=== PATIENT | male | born 1960 | race Caucasian/White ===

== ENCOUNTER 2017-08-16 09:08 | Inpatient (IN) | payer OTHER ==
[2017-08-16] MEDS ORDERED: ONDANSETRON 4 MG/2 ML VIAL IVP STA (09:14)
[2017-08-16] MEDS ORDERED: SODIUM CHLORIDE 0.9% 1,000 ML IV STA ×2 (09:14→11:39)
[2017-08-16] MEDS ORDERED: RX INFO: IV CONTRAST WAS GIVEN 1 EACH MISC MISCELLANE PRN (09:14)
[2017-08-16] MEDS ORDERED: HYDROmorphone 1 MG/ML 1 ML SYRINGE IVP STA ×2 (09:14→10:49)
--- NOTE | 2017-08-16 09:25 | ED ---
General Adult HPI <Andrzej Tian - Last Filed: 08/16/17 11:24> - General Source: patient, EMS, RN notes reviewed Mode of arrival: EMS Limitations: no limitations <Mallorie Miller - Last Filed: 08/16/17 11:30> - General Chief complaint: Abdominal Pain Stated complaint: Abd Pain Time Seen by Provider: 08/16/17 09:10 - History of Present Illness Initial comments: 56-year-old male presents to the emergency department with a chief complaint of abdominal pain. Patient states it a little bit of pain yesterday and then this morning about 4 hours ago he developed this terrible pain. Patient states he had some nausea vomiting with that when he tried to drink water was concerned. She denies any fever chills with this. She does admit that he has blown a hole in his bowels before and he states it feels somewhat like that. Patient denies any diarrhea. Patient's any recent fever or chills. Patient was concerned due to his pains without that he should be evaluated. Patient states that he chronically suffers some suicidal thoughts that he is chronically having these thoughts like he normally does on a daily basis. He has no plan. He states that this is very typical of him and he is not here to be evaluated for this. He has been taking this medicine is seeing psychiatrist. Patient denies any recent fever, chills, shortness of breath, chest pain, back pain, numbness or tingling, dysuria or hematuria, constipation or diarrhea, headaches or visual changes, or any other current symptoms. (Mallorie Miller) - Related Data Home Medications Medication Instructions Recorded Confirmed Albuterol Inhaler [Ventolin Hfa 1 - 2 puff INHALATION RT-Q6H PRN 07/29/17 Inhaler] Gabapentin 800 mg PO QID 07/29/17 08/16/17 HYDROcodone/APAP 10-325MG [Swink 1 tab PO QID PRN 07/29/17 08/16/17 10-325] Ibuprofen [Motrin] 600 mg PO TID PRN 07/29/17 08/16/17 ALPRAZolam [Xanax] 1 mg PO 5XD 08/16/17 08/16/17 Lisinopril [Zestril] 10 mg PO DAILY 08/16/17 08/16/17 Ranitidine HCl [Zantac] 150 mg PO BID 08/16/17 08/16/17 Tamsulosin HCl [Flomax] 0.4 mg PO DAILY 08/16/17 08/16/17 Previous Rx's Medication Instructions Recorded Escitalopram [Lexapro] 10 mg PO DAILY #30 tab 08/05/17 QUEtiapine FUMARATE [SEROquel] 300 mg PO HS #30 tab 08/05/17 hydrOXYzine HCL [Atarax] 75 mg PO HS PRN #30 tab 08/05/17 Allergies Allergy/AdvReac Type Severity Reaction Status Date / Time Sulfa (Sulfonamide Allergy Rash/Hives Verified 07/27/17 19:24 Antibiotics) Review of Systems ROS Other: All systems not noted in ROS Statement are negative. <Andrzej Tian - Last Filed: 08/16/17 11:24> ROS Other: All systems not noted in ROS Statement are negative. <Mallorie Miller - Last Filed: 08/16/17 11:30> ROS Statement: Those systems with pertinent positive or pertinent negative responses have been documented in the HPI. Past Medical History Past Medical History: Hypertension History of Any Multi-Drug Resistant Organisms: None Reported Additional Past Surgical History / Comment(s): stomach surgery (unable to tell what kind) Past Psychological History: Anxiety, Bipolar, Depression Smoking Status: Current every day smoker Past Alcohol Use History: None Reported Past Drug Use History: None Reported <Mallorie Miller - Last Filed: 08/16/17 11:30> General Exam <Andrzej Tian - Last Filed: 08/16/17 11:24> Limitations: no limitations <Mallorie Miller - Last Filed: 08/16/17 11:30> - General Exam Comments Initial Comments: General: The patient is awake and alert, in no distress, and does not appear acutely ill. Eye: Pupils are equal, round and reactive to light, extra-ocular movements are intact; there is normal conjunctiva bilaterally. No signs of icterus. Ears, nose, mouth and throat: There are moist mucous membranes and no oral lesions. Neck: The neck is supple, there is no tenderness. Cardiovascular: There is a regular rate and rhythm. No murmur, rub or gallop is appreciated. Respiratory: Lungs are clear to auscultation, respirations are non-labored, breath sounds are equal. No wheezes, stridor, rales, or rhonchi. Gastrointestinal: Soft, non-distended, left-sided tenderness of the abdomen without masses or organomegaly noted. There is no rebound or guarding present. No CVA tenderness. Bowel sounds are unremarkable. Back: There is no tenderness to palpation in the midline. There is no obvious deformity. No rashes noted. Musculoskeletal: Normal ROM, no tenderness, There is no pedal edema. There is no calf tenderness or swelling. Sensation intact. Pulses equal bilaterally 2+. Neurological: CN II-XII intact, There are no obvious motor or sensory deficits. Coordination appears grossly intact. Speech is normal. Skin: Skin is warm and dry and no rashes or lesions are noted. Psychiatric: Cooperative, appropriate mood & affect, normal judgment. (Mallorie Millre) Course <Andrzej Tian - Last Filed: 08/16/17 11:24> <Mallorie Miller - Last Filed: 08/16/17 11:30> Vital Signs 08/16/17 08/16/17 09:12 11:02 Temperature 97.7 F Pulse Rate 71 76 Respiratory 22 18 Rate Blood Pressure 127/83 156/92 O2 Sat by Pulse 97 96 Oximetry - Reevaluation(s) Reevaluation #1: 08/16/17 11:24 I proceeded [id number] evaluation the patient did discuss findings with her. Patient does have some epigastric tenderness palpation of the abdomen. The CAT scan does show evidence of free air consistent with a probable perforated viscus suspected gastric level. Patient does have a history of prior perforated ulcer and GI bleed. He does have ALLERGIES to sulfa. His last meal was yesterday. He does smoke he denies drinking alcohol I did discuss case with Dr. Franks who will come in to see the patient. (Andrzej Tian) Medical Decision Making - Lab Data Result diagrams: 08/16/17 09:35 08/16/17 09:35 <Andrzej Tian - Last Filed: 08/16/17 11:24> - Lab Data Result diagrams: 08/16/17 09:35 08/16/17 09:35 - Radiology Data Radiology results: report reviewed, image reviewed <Mallorie Miller - Last Filed: 08/16/17 11:30> - Medical Decision Making 56-year-old male presents emergency Department chief complaint of abdominal pain. At this time patient's computed tomography scan was reviewed Dr. Tian discussed case to Dr. franks we will be admitting the patient for the OR. Patient is in agreement with plan. (Mallorie Miller) - Lab Data Lab Results 08/16/17 08/16/17 08/16/17 Range/Units 09:35 09:35 09:35 WBC 9.7 (3.8-10.6) k/uL RBC 4.49 (4.30-5.90) m/uL Hgb 13.8 (13.0-17.5) gm/dL Hct 40.5 (39.0-53.0) % MCV 90.2 (80.0-100.0) fL MCH 30.7 (25.0-35.0) pg MCHC 34.0 (31.0-37.0) g/dL RDW 15.2 (11.5-15.5) % Plt Count 145 L (150-450) k/uL Neutrophils % 84 % Lymphocytes % 5 % Monocytes % 9 % Eosinophils % 1 % Basophils % 0 % Neutrophils # 8.2 H (1.3-7.7) k/uL Lymphocytes # 0.4 L (1.0-4.8) k/uL Monocytes # 0.9 (0-1.0) k/uL Eosinophils # 0.1 (0-0.7) k/uL Basophils # 0.0 (0-0.2) k/uL PT (9.0-12.0) sec INR (<1.2) APTT (22.0-30.0) sec Sodium 142 (137-145) mmol/L Potassium 3.6 (3.5-5.1) mmol/L Chloride 111 H (98-107) mmol/L Carbon Dioxide 16 L (22-30) mmol/L Anion Gap 15 mmol/L BUN 19 (9-20) mg/dL Creatinine 1.01 (0.66-1.25) mg/dL Est GFR (MDRD) Af Amer >60 (>60 ml/min/1.73 sqM) Est GFR (MDRD) Non-Af >60 (>60 ml/min/1.73 sqM) Glucose 104 H (74-99) mg/dL Plasma Lactic Acid Marcell 1.4 (0.7-2.0) mmol/L Calcium 9.3 (8.4-10.2) mg/dL Total Bilirubin 1.3 (0.2-1.3) mg/dL AST 52 (17-59) U/L ALT 73 H (21-72) U/L Alkaline Phosphatase 78 (38-126) U/L Total Protein 7.6 (6.3-8.2) g/dL Albumin 4.3 (3.5-5.0) g/dL Amylase 65 (30-110) U/L Lipase 154 (23-300) U/L 08/16/17 Range/Units 09:35 WBC (3.8-10.6) k/uL RBC (4.30-5.90) m/uL Hgb (13.0-17.5) gm/dL Hct (39.0-53.0) % MCV (80.0-100.0) fL MCH (25.0-35.0) pg MCHC (31.0-37.0) g/dL RDW (11.5-15.5) % Plt Count (150-450) k/uL Neutrophils % % Lymphocytes % % Monocytes % % Eosinophils % % Basophils % % Neutrophils # (1.3-7.7) k/uL Lymphocytes # (1.0-4.8) k/uL Monocytes # (0-1.0) k/uL Eosinophils # (0-0.7) k/uL Basophils # (0-0.2) k/uL PT 11.8 (9.0-12.0) sec INR 1.2 H (<1.2) APTT 24.1 (22.0-30.0) sec Sodium (137-145) mmol/L Potassium (3.5-5.1) mmol/L Chloride (98-107) mmol/L Carbon Dioxide (22-30) mmol/L Anion Gap mmol/L BUN (9-20) mg/dL Creatinine (0.66-1.25) mg/dL Est GFR (MDRD) Af Amer (>60 ml/min/1.73 sqM) Est GFR (MDRD) Non-Af (>60 ml/min/1.73 sqM) Glucose (74-99) mg/dL Plasma Lactic Acid Marcell (0.7-2.0) mmol/L Calcium (8.4-10.2) mg/dL Total Bilirubin (0.2-1.3) mg/dL AST (17-59) U/L ALT (21-72) U/L Alkaline Phosphatase (38-126) U/L Total Protein (6.3-8.2) g/dL Albumin (3.5-5.0) g/dL Amylase (30-110) U/L Lipase (23-300) U/L Disposition <Andrzej Tian - Last Filed: 08/16/17 11:24> Decision Date: 08/16/17 Decision Time: 11:30 <Mallorie Miller - Last Filed: 08/16/17 11:30> Clinical Impression: Pneumoperitoneum of unknown etiology Disposition: ADMITTED IP TO THIS [facility] Condition: Stable Referrals: Nonstaff,Physician [Primary Care Provider] - 1-2 days
[2017-08-16 10:09] LABS: Basophils % (A) 0 %; CH 31.5; CHCM 35.1; Eosinophils # (A) 0.1 k/uL (0-0.7); Eosinophils % (A) 1 %; HCT 40.5 % (39.0-53.0); HDW 2.58; HGB 13.8 gm/dL (13.0-17.5); Luc # (Auto) 0.09; Luc % (Auto) 1; Lymphocytes # (A) 0.4 k/uL (1.0-4.8); Lymphocytes % (A) 5 %; MCH 30.7 pg (25.0-35.0); MCV 90.2 fL (80.0-100.0); Mean Platelet Volume 9.4; Monocytes # (A) 0.9 k/uL (0-1.0); Monocytes % (A) 9 %; Neutrophils # (A) 8.2 k/uL (1.3-7.7); Neutrophils % (A) 84 %; RBC 4.49 m/uL (4.30-5.90); RDW 15.2 % (11.5-15.5); WBC 9.7 k/uL (3.8-10.6); WBC (Perox) 9.43
[2017-08-16 10:25] LABS: ALT 73 U/L (21-72); AST 52 U/L (17-59); Alkaline Phosphatase 78 U/L (38-126); Amylase 65 U/L (30-110); Anion Gap 15 mmol/L; Blood Urea Nitrogen 19 mg/dL (9-20); Calcium 9.3 mg/dL (8.4-10.2); Carbon Dioxide 16 mmol/L (22-30); Chloride 111 mmol/L (98-107); Glucose 104 mg/dL (74-99); INR 1.2 (<1.2); Non-African American GFR(MDRD) >60 (>60 ml/min/1.73 sqM); Partial Thromboplastin Time 24.1 sec (22.0-30.0); Potassium 3.6 mmol/L (3.5-5.1); Prothrombin Time 11.8 sec (9.0-12.0); Sodium 142 mmol/L (137-145); Total Bilirubin 1.3 mg/dL (0.2-1.3); Total Protein 7.6 g/dL (6.3-8.2)
--- NOTE | 2017-08-16 10:54 | CT ---
EXAMINATION TYPE: CT abdomen pelvis w con DATE OF EXAM: 08/16/2017 COMPARISON: NONE HISTORY: Patient complains of severe LLQ pain. CT DLP: 983.4 mGycm, Automated Exposure Control for Dose Reduction was Utilized. CONTRAST: CT scan of the abdomen and pelvis is performed without oral and with IV Contrast, patient injected wi th 100 mL of Omnipaque 300. FINDINGS: LUNG BASES: Dependent atelectasis is present in both lung bases. There is prominent but subcentimeter pericardial lymph node anteriorly on axial image 9. There is linear scarring and/or atelectasis ante riorly in both lung bases just above diaphragm. LIVER/GB: Gallbladder has distended margins without surrounding inflammatory change or intraluminal C T dense gallstones. PANCREAS: No significant abnormality is seen. SPLEEN: No significant abnormality is seen. ADRENALS: No significant abnormality is seen. KIDNEYS: No significant abnormality is seen. BOWEL: No suspicious small or large bowel dilatation is seen. There is some redundancy of the sigmo id colon. There is mild wall thickening in the mid transverse colon just left of midline seen best on coronal image 24 without surrounding inflammatory change, colitis at this level is not entirely excl uded. There is some prominence of fluid with poor definition along the greater curvature of the stoma ch seen best near coronal image 28. PROSTATE/SEMINAL VESICLES: Central zone calcification is seen in normal size prostate gland. LYMPH NODES: No greater than 1cm abdominal or pelvic lymph nodes are appreciated. OSSEOUS STRUCTURES: There is moderate joint space loss with mild to moderate spurring in both hip patsy nts. There is dextroconvex scoliosis centered in the mid lumbar spine. There is multilevel moderate t o severe disc space narrowing and spurring from L2-L3 through L5-S1 levels. OTHER: Pneumoperitoneum is present prominent in the upper abdomen anterior to the liver. There are sc attered foci of free air in the epigastric region. There is moderate size umbilical hernia containing fat and small mesenteric vessel incidentally noted . IMPRESSION: Pneumoperitoneum centered in the upper abdomen is present. Etiology uncertain but there i s suspicious focal fluid along the greater curvature of stomach raising concern for perforated ulcer. Critical results were communicated to ordering emergency care physician parking assistant via telephone at ti me of dictation.
[2017-08-16] MEDS ORDERED: NALOXONE 0.4 MG/ML 1 ML VIAL IV PRN ×2 (11:30→15:39)
[2017-08-16] MEDS ORDERED: hydrOXYzine HCL 25 MG TAB PO PRN (11:31)
[2017-08-16] MEDS ORDERED: IBUPROFEN 600 MG TAB PO PRN (11:31)
[2017-08-16] MEDS ORDERED: ALBUTEROL NEBULIZED 2.5 MG/3 ML INHALATION PRN (11:31)
[2017-08-16] MEDS ORDERED: HYDROcodone/APAP 10-325MG 1 EACH TAB PO PRN (11:31)
[2017-08-16] MEDS ORDERED: metroNIDAZOLE-NS PMX 500 MG in SALINE 1 100ML.BAG IVPB STA (11:39)
[2017-08-16] MEDS ORDERED: KETOROLAC 30 MG/ML 1 ML VIAL IVP STA (11:39)
[2017-08-16] MEDS: SODIUM CHLORIDE 0.9% 1,000 ML IV SCH ×3 (12:10→23:59)
[2017-08-16] MEDS: HYDROmorphone 1 MG/ML 1 ML SYRINGE IVP PRN ×4 (12:13→23:51)
[2017-08-16] MEDS ORDERED: SODIUM CHLORIDE 0.9% 1,000 ML IV ONE (12:53)
[2017-08-16] MEDS ORDERED: GABAPENTIN 400 MG CAP PO SCH (13:00)
[2017-08-16] MEDS ORDERED: HEPARIN SODIUM,PORCINE 5,000 UNIT/ML 1 ML VIAL SQ ONE (13:11)
--- NOTE | 2017-08-16 13:24 | P.GSHP ---
History of Present Illness H&P Date: 08/16/17 Acute abdominal pain which began last night around 4am. He was feeling some discomfort prior to that however he noticed it got much worse after a drink of water. Patient has a medical history significant for HEP C, HTN, perforated ulcer in the past which was repaired in the . He states his pain is now constant and feels like the last time he had a perforated ulcer. He has not had anything to eat or drink since that sip of water this morning. He denies fever chills. He admits to taking motrin and smoking. He occasionally takes zantac for GERD but not every day. He has no other complaints at this time. He denies any other abdominal surgeries. He did have an EGD for a bleeding ulcer years ago but does not remember where or when. - Review of Systems All systems: negative Past Medical History Past Medical History: Hypertension History of Any Multi-Drug Resistant Organisms: None Reported Additional Past Surgical History / Comment(s): stomach surgery (unable to tell what kind) Past Psychological History: Anxiety, Bipolar, Depression Smoking Status: Current every day smoker Past Alcohol Use History: None Reported Past Drug Use History: None Reported Medications and Allergies Home Medications Medication Instructions Recorded Confirmed Type Albuterol Inhaler [Ventolin Hfa 1 - 2 puff INHALATION RT-Q6H PRN 07/29/17 History Inhaler] Gabapentin 800 mg PO QID 07/29/17 08/16/17 History HYDROcodone/APAP 10-325MG [Dexter 1 tab PO QID PRN 07/29/17 08/16/17 History 10-325] Ibuprofen [Motrin] 600 mg PO TID PRN 07/29/17 08/16/17 History Escitalopram [Lexapro] 10 mg PO DAILY #30 tab 08/05/17 08/16/17 Rx QUEtiapine FUMARATE [SEROquel] 300 mg PO HS #30 tab 08/05/17 08/16/17 Rx hydrOXYzine HCL [Atarax] 75 mg PO HS PRN #30 tab 08/05/17 08/16/17 Rx ALPRAZolam [Xanax] 1 mg PO 5XD 08/16/17 08/16/17 History Lisinopril [Zestril] 10 mg PO DAILY 08/16/17 08/16/17 History Ranitidine HCl [Zantac] 150 mg PO BID 08/16/17 08/16/17 History Tamsulosin HCl [Flomax] 0.4 mg PO DAILY 08/16/17 08/16/17 History Allergies Allergy/AdvReac Type Severity Reaction Status Date / Time Sulfa (Sulfonamide Allergy Rash/Hives Verified 07/27/17 19:24 Antibiotics) Surgical - Exam Osteopathic Statement: *. No significant issues noted on an osteopathic structural exam other than those noted in the History and Physical/Consult. Vital Signs Temp Pulse Resp BP Pulse Ox 97.7 F 71 22 127/83 97 08/16/17 09:12 08/16/17 09:12 08/16/17 09:12 08/16/17 09:12 08/16/17 09:12 - General well developed, well nourished - Eyes PERRL - ENT normal mucosa - Respiratory normal expansion, normal respiratory effort - Cardiovascular Heart Rate: 60 Rhythm: regular - Abdomen Non rigid, diffusely tender worse in mid epigastric, healed upper midline incision, positive rebound - Integumentary old healing wound on left lower ext with eschar - Neurologic normal coordination, normal sensation - Psychiatric oriented to time, oriented to person, oriented to place Results - Labs 08/16/17 09:35 08/16/17 09:35 Abnormal Lab Results - Last 24 Hours (Table) 08/16/17 08/16/17 08/16/17 Range/Units 09:35 09:35 09:35 Plt Count 145 L (150-450) k/uL Neutrophils # 8.2 H (1.3-7.7) k/uL Lymphocytes # 0.4 L (1.0-4.8) k/uL INR 1.2 H (<1.2) Chloride 111 H (98-107) mmol/L Carbon Dioxide 16 L (22-30) mmol/L Glucose 104 H (74-99) mg/dL ALT 73 H (21-72) U/L Diabetes panel 08/16/17 Range/Units 09:35 Sodium 142 (137-145) mmol/L Potassium 3.6 (3.5-5.1) mmol/L Chloride 111 H (98-107) mmol/L Carbon Dioxide 16 L (22-30) mmol/L BUN 19 (9-20) mg/dL Creatinine 1.01 (0.66-1.25) mg/dL Glucose 104 H (74-99) mg/dL Calcium 9.3 (8.4-10.2) mg/dL AST 52 (17-59) U/L ALT 73 H (21-72) U/L Alkaline Phosphatase 78 (38-126) U/L Total Protein 7.6 (6.3-8.2) g/dL Albumin 4.3 (3.5-5.0) g/dL Calcium panel 08/16/17 Range/Units 09:35 Calcium 9.3 (8.4-10.2) mg/dL Albumin 4.3 (3.5-5.0) g/dL Pituitary panel 08/16/17 Range/Units 09:35 Sodium 142 (137-145) mmol/L Potassium 3.6 (3.5-5.1) mmol/L Chloride 111 H (98-107) mmol/L Carbon Dioxide 16 L (22-30) mmol/L BUN 19 (9-20) mg/dL Creatinine 1.01 (0.66-1.25) mg/dL Glucose 104 H (74-99) mg/dL Calcium 9.3 (8.4-10.2) mg/dL Adrenal panel 08/16/17 Range/Units 09:35 Sodium 142 (137-145) mmol/L Potassium 3.6 (3.5-5.1) mmol/L Chloride 111 H (98-107) mmol/L Carbon Dioxide 16 L (22-30) mmol/L BUN 19 (9-20) mg/dL Creatinine 1.01 (0.66-1.25) mg/dL Glucose 104 H (74-99) mg/dL Calcium 9.3 (8.4-10.2) mg/dL Total Bilirubin 1.3 (0.2-1.3) mg/dL AST 52 (17-59) U/L ALT 73 H (21-72) U/L Alkaline Phosphatase 78 (38-126) U/L Total Protein 7.6 (6.3-8.2) g/dL Albumin 4.3 (3.5-5.0) g/dL - Imaging CT scan - abdomen: report reviewed, image reviewed Assessment and Plan (1) Acute abdomen Status: Acute Plan: Discussed with the patient the plan for exploratory laparotomy with possible bowel resection, possible ostomy and all other indicated procedures. This is likely secondary to a perforated gastric ulcer. He was agreeable to this plan. We will start him on IV abx, rocephin and flagyl, IVF, NPO, SQ heparin and SCDs. Further recs after surgery
[2017-08-16] MEDS ORDERED: LIDOCAINE 1% INJ 10MG/ML (20 ML MDV) ONE (13:39)
[2017-08-16] MEDS ORDERED: MIDAZOLAM 2 MG/2 ML VIAL ONE (13:39)
[2017-08-16] MEDS ORDERED: SUCCINYLCHOLINE CHLORIDE 100 MG/5 ML SYR IV ONE (13:39)
[2017-08-16] MEDS ORDERED: fentaNYL (PF) 50 MCG/ML 2 ML AMP ONE (13:39)
[2017-08-16] MEDS ORDERED: ROCURONIUM BROMIDE 10 MG/ML 10 ML VIAL IV ONE (13:39)
[2017-08-16] MEDS ORDERED: PROPOFOL 10 MG/ML 20 ML VIAL IV ONE (13:39)
[2017-08-16] MEDS ORDERED: HYDROmorphone (PF) 1 MG/ML ONE (13:39)
[2017-08-16] MEDS ORDERED: PIPERACILLIN-TAZOBACTAM 3.375 GM in DEXTROSE/WATER 1 50ML.BAG IVPB STA (14:03)
[2017-08-16] MEDS ORDERED: LACTATED RINGERS 1,000 ML IV ONE (14:37)
[2017-08-16] MEDS ORDERED: HYDROmorphone 1 MG/ML 1 ML SYRINGE IVP ONE ×2 (15:58→16:05)
[2017-08-16] MEDS ORDERED: ALPRAZolam 0.5 MG TAB PO SCH (16:00)
[2017-08-16] MEDS ORDERED: metroNIDAZOLE-NS PMX 500 MG in SALINE 1 100ML.BAG IVPB SCH (16:00)
[2017-08-16] MEDS ORDERED: ACETAMINOPHEN IV (For NPO) 1,000 MG in EMPTY BAG 1 BAG IVPB ONE (16:00)
[2017-08-16 16:55] VITALS: BMI 26.4
[2017-08-16] MEDS: PANTOPRAZOLE 40 MG/10 ML VIAL IV SCH (18:13)
--- NOTE | 2017-08-16 18:41 | P.OP ---
Date of Procedure: 08/16/17 Preoperative Diagnosis: Acute abdomen with free air Postoperative Diagnosis: Perforated gastric ulcer Procedure(s) Performed: Exploratory laparotomy with modified Philip patch repair of perforated gastric ulcer Anesthesia: SUNDAY Surgeon: Vinay Franks Log Marker #1: Lani Bautista Estimated Blood Loss (ml): 20 IV fluids (ml): 1,500 Condition: stable Disposition: PACU Indications for Procedure: This is a 56-year-old male came in with acute abdominal pain was found to have a large amount of free air in his upper abdomen had a history of perforated gastric ulcer in the past he has been taking Motrin every day does not take to Zantac regularly that he was prescribed and also has a history of a bleeding gastric ulcer which had to have endoscopic repair. He was highly suspect for perforated gastric ulcer and had an acute abdomen. The risks benefits and alternatives to exploratory laparotomy with possible repair of perforated gastric ulcer possible bowel resection and possible ostomy and all other indicated procedures were discussed and the patient he stated he understood these risks agreed and consented the procedure. Operative Findings: Perforated gastric ulcer on the posterior body of the stomach approximately 1 x 1 cm Description of Procedure: Patient was brought into the operative suite remained in the supine position prepped and draped in the usual sterile fashion timeout was performed correct patient correct procedure correct site was verified. An upper midline incision was made over the old scar. This was carried down to the fascia which was incised in the usual fashion and the peritoneum was entered under direct visualization with Metzenbaum scissors. Upon entering the peritoneal cavity gross gastric contents and purulent fluid was noted this was suctioned. The anterior portion stomach was inspected and duodenum was inspected. There was no perforations or abnormalities noted the lesser sac was then entered along the greater curvature of the stomach and the posterior portion stomach was inspected and there was a 1 cm x 1 cm perforation in the posterior body of the stomach. This was closed with imbricating 3-0 silk sutures placing a piece of omentum and the tails of the sutures and suturing it down to the repair creating a modified Philip patch. The rest of the stomach and duodenum was again inspected and no other abnormalities were noted. The abdomen was copiously irrigated and suctioned until clear with 2 L of normal saline. A BETTY drain was placed in the lesser sac near the ulcer and sutured in place with a 2- 0 nylon suture to the skin. NG tube was placed and felt to be in a good place in the body of the stomach. The fascia was then closed with 2 looped Maxon suture. The skin was then closed with skin rivera and sterile dressing was applied patient tolerated the procedure well there is no apparent complications
[2017-08-16] MEDS ORDERED: IPRATROPIUM-ALBUTEROL 3 ML NEB INHALATION PRN (18:47)
[2017-08-16] MEDS: IPRATROPIUM-ALBUTEROL 3 ML NEB INHALATION SCH (19:08)
--- NOTE | 2017-08-16 19:18 | XR ---
EXAMINATION TYPE: XR chest 1V portable DATE OF EXAM: 08/16/2017 COMPARISON: NONE HISTORY: COPD. TECHNIQUE: Single frontal view of the chest is obtained. FINDINGS: There is coarse infiltrate at the left lung base. This coarsening of markings at the right lung base as well. There is no heart failure. There is a nasogastric tube noted. Thoracic aorta is a theromatous. IMPRESSION: Fibrotic changes and atelectasis at the lung bases. Left lower lobe pneumonia cannot be excluded.
[2017-08-16] MEDS ORDERED: FAMOTIDINE 20 MG TAB PO SCH (21:00)
[2017-08-16] MEDS ORDERED: QUEtiapine 100 MG TAB PO SCH (21:00)
[2017-08-16] MEDS: NICOTINE 14MG/24HR PATCH TRANSDERM SCH (21:22)
[2017-08-16 22:31] LABS: Appearance,Urine Clear (Clear); Bilirubin,Urine Negative (Negative); Glucose,Urine (UA) Negative (Negative); Ketones,Urine Negative (Negative); Leukocyte Esterase,Urine Moderate (Negative); Mucus,Urine Few /hpf; Nitrite,Urine Negative (Negative); Particle Count 5495; Protein,Urine Trace (Negative); RBC,Urine 14 /hpf (0-5); Specific Gravity,Urine 1.029 (1.001-1.035); Squamous Epithelial Cell,Urine <1 /hpf (0-4); UA Billing (MACRO vs. MICRO) MICRO; WBC,Urine 23 /hpf (0-5)
[2017-08-16] MEDS: HEPARIN SODIUM,PORCINE 5,000 UNIT/ML 1 ML VIAL SQ SCH (23:59)
[2017-08-17] MEDS: HYDROmorphone 1 MG/ML 1 ML SYRINGE IVP PRN ×6 (02:55→21:00)
[2017-08-17] MEDS: LORazepam 2 MG/ML INJ IV PRN ×2 (02:58→08:24)
[2017-08-17] MEDS: SODIUM CHLORIDE 0.9% 1,000 ML IV SCH ×2 (06:11→17:24)
[2017-08-17] MEDS: IPRATROPIUM-ALBUTEROL 3 ML NEB INHALATION SCH ×3 (07:14→19:31)
--- NOTE | 2017-08-17 07:19 | CONS ---
CONSULTATION REASON FOR CONSULTATION: Advice regarding hypertension and multiple other medical issues at the request of Dr. Franks. HISTORY: This 56-year-old gentleman with past medical history of hypertension, history of hepatitis, history drug abuse, anxiety bipolar depression being followed by primary care physician in [facility] recently moved to [facility]. The patient had a previous surgery for peptic ulcer perforation. Currently patient complaining of severe abdominal pain since today and the patient is evaluated in the ER which showed a large amount of free air in the upper abdomen and the patient was taking Motrin and Dr. Franks, the surgeon, performed exploratory laparotomy with modified Philip patch repair of perforated gastric ulcer and the patient admitted for evaluation and treatment. Patient extremely anxious taking a large dose of Xanax. Currently the patient has NG tube. There is no history of fever, rigors. No headache, loss of consciousness or seizures. PAST MEDICAL HISTORY: Hypertension, hepatitis C, history anxiety, bipolar, depression. MEDICATIONS: Prior to admission include: 1. Atarax 75 mg q.h.s. p.r.n. 2. Flomax 0.4 daily. 3. Zantac 150 mg b.i.d. 4. Seroquel 300 mg q.h.s. 5. Zestril 10 mg daily. 6. Motrin 600 mg t.i.d. p.r.n. 7. Ensign 1 tablet p.o. daily. 8. Gabapentin 800 mg q.h.s. 9. Lexapro 10 mg daily. 10.Ventolin HFA 1-2 q.6h. 11.Xanax 1 mg 5 times daily. ALLERGIES: SULFA FAMILY HISTORY: History of congestive heart failure in the family. SOCIAL HISTORY: History of smoking on regular basis. REVIEW OF SYSTEMS: ENT: No diminished hearing or vision. CARDIOVASCULAR: No angina. RESPIRATORY: As mentioned earlier, occasional cough. GI: As mentioned earlier. : No dysuria. NERVOUS SYSTEM: No numbness or weakness. ALLERGY/IMMUNOLOGY: No asthma. MUSCULOSKELETAL: As mentioned earlier. HEMATOLOGY/ONCOLOGY: No history of anemia. ENDOCRINE: No history of diabetes or hypothyroidism. CONSTITUTIONAL: DERMATOLOGY: Negative. RHEUMATOLOGY: Negative. PSYCHIATRY: As mentioned earlier. PHYSICAL EXAM: Patient is alert and oriented x3. The pulse is 70, blood pressure 144/85, respirations 16, temperature 97.8, pulse ox 94% on room air. HEENT: Conjunctivae normal. Oral mucosa moist. NECK: No jugular venous distention. No carotid bruit. No lymph node enlargement. CARDIOVASCULAR: S1, S2. No S3, no S4. RESPIRATORY: Breath sounds diminished in the bases. Chest looks emphysematous. A few scattered rhonchi and crackles. ABDOMEN: Soft, status post surgery. Bowel sounds absent. LEGS: No edema, no swelling. NERVOUS SYSTEM: Higher functions as mentioned earlier. Moves all four limbs. No focal motor deficits. LYMPHATIC: No lymphadenopathy in the neck, axillae, or groin. SKIN: No ulcer, rash, bleeding. LABS: WBC 9.7, platelets 145, INR 1.2. CO2 16. ALT is 73. ASSESSMENT: 1. Acute perforated gastric ulcer status post exploratory laparotomy as well as modified Philip patch repair of perforated gastric ulcer. 2. Possible chronic obstructive pulmonary disease. 3. History of nicotine dependence. 4. History of hypertension. 5. History hepatitis C. 6. Increased ALT. 7. History of substance abuse. 8. History of anxiety, bipolar, depression. RECOMMENDATION AND DISCUSSION: This 56-year-old gentleman who presented with multiple complex medical issues, we will monitor the patient closely. Continue the current management and symptomatic treatment. I recommend bronchodilators, empiric antibiotics and DVT prophylaxis. Proton pump inhibitors. We will follow the patient closely. Patient may be asked to follow up with primary care in outpatient setting. Smoking cessation and Habitrol patch also may be used. Will follow the patient closely with you. Thank you, Dr. Franks, for letting us participate in the care of this patient. MMODL / IJN: [id number] /
[2017-08-17] MEDS: PANTOPRAZOLE 40 MG/10 ML VIAL IV SCH (08:23)
[2017-08-17] MEDS: TAMSULOSIN 0.4 MG CAP.ER.24H PO SCH ×2 (08:24→08:27)
[2017-08-17] MEDS: NICOTINE 14MG/24HR PATCH TRANSDERM SCH (08:24)
[2017-08-17] MEDS: HEPARIN SODIUM,PORCINE 5,000 UNIT/ML 1 ML VIAL SQ SCH ×2 (08:24→17:25)
[2017-08-17 08:32] LABS: Basophils % (A) 0 %; CH 31.1; CHCM 33.1; Eosinophils % (A) 0 %; HCT 40.1 % (39.0-53.0); HDW 2.54; HGB 12.8 gm/dL (13.0-17.5); Luc # (Auto) 0.12; Luc % (Auto) 1; Lymphocytes # (A) 0.6 k/uL (1.0-4.8); Lymphocytes % (A) 6 %; MCH 30.3 pg (25.0-35.0); MCHC 32.1 g/dL (31.0-37.0); MCV 94.6 fL (80.0-100.0); Monocytes # (A) 0.5 k/uL (0-1.0); Monocytes % (A) 6 %; Neutrophils # (A) 7.8 k/uL (1.3-7.7); Neutrophils % (A) 86 %; RBC 4.24 m/uL (4.30-5.90); RDW 15.2 % (11.5-15.5)
[2017-08-17 08:52] LABS: ALT 59 U/L (21-72); AST 37 U/L (17-59); Alkaline Phosphatase 58 U/L (38-126); Anion Gap 11 mmol/L; Blood Urea Nitrogen 21 mg/dL (9-20); Calcium 8.4 mg/dL (8.4-10.2); Carbon Dioxide 22 mmol/L (22-30); Chloride 113 mmol/L (98-107); Glucose 89 mg/dL (74-99); Non-African American GFR(MDRD) >60 (>60 ml/min/1.73 sqM); Potassium 3.7 mmol/L (3.5-5.1); Sodium 146 mmol/L (137-145); Total Bilirubin 1.1 mg/dL (0.2-1.3); Total Protein 6.5 g/dL (6.3-8.2)
[2017-08-17] MEDS ORDERED: ESCITALOPRAM 10 MG TAB PO SCH (09:00)
[2017-08-17] MEDS ORDERED: LISINOPRIL 10 MG TAB PO SCH (09:00)
--- NOTE | 2017-08-17 14:51 | P.PN ---
Subjective Progress Note Date: 08/17/17 Principal diagnosis: Perforated gastric ulcer Patient is doing well today. He states his pain is improved since the surgery yesterday. He denies any nausea or vomiting. He is not passing any gas or having bowel movements. He denies any fevers or chills. He's been up sitting in a chair and ambulating. Objective - Vital Signs Vital signs: Vital Signs Temp 97.7 F 08/17/17 14:43 Pulse 56 L 08/17/17 14:43 Resp 17 08/17/17 14:43 BP 138/81 08/17/17 14:43 Pulse Ox 96 08/17/17 14:43 Intake & Output 08/16/17 08/17/17 08/17/17 18:59 06:59 18:59 Intake Total 1600 1800 Output Total 580 1155 300 Balance 1020 645 -300 Weight 101.151 kg Intake: IV 1600 Intake, IV Titration 1800 Amount Sodium Chloride 0.9% 1, 1800 000 ml @ 150 mls/hr IV . Q6H40M [facility] Rx#:[id number] Output: Gastric Drainage 550 Drainage 80 105 Left Abdomen 80 105 Urine 480 500 300 Uretheral ([place]) 500 300 Estimated Blood Loss 20 Other: Voiding Method Indwelling Catheter Indwelling Catheter Indwelling Catheter - Constitutional General appearance: Present: average body habitus, cooperative - EENT Eyes: Present: EOMI - Respiratory Details: Nonlabored breathing - Cardiovascular Rhythm: regular - Gastrointestinal Gastrointestinal Comment(s): Abdomen soft nondistended mild tenderness palpation improved from previous exam. BETTY is a cloudy serosanguineous color - Psychiatric Psychiatric: Present: A&O x's 3 - Labs CBC & Chem 7: 08/17/17 08:17 08/17/17 08:17 Labs: Abnormal Lab Results - Last 24 Hours (Table) 08/16/17 08/17/17 08/17/17 Range/Units 22:10 08:17 08:17 RBC 4.24 L (4.30-5.90) m/uL Hgb 12.8 L (13.0-17.5) gm/dL Plt Count 95 L (150-450) k/uL Neutrophils # 7.8 H (1.3-7.7) k/uL Lymphocytes # 0.6 L (1.0-4.8) k/uL Sodium 146 H (137-145) mmol/L Chloride 113 H (98-107) mmol/L BUN 21 H (9-20) mg/dL Albumin 3.4 L (3.5-5.0) g/dL Urine Protein Trace H (Negative) Urine Blood Small H (Negative) Ur Leukocyte Esterase Moderate H (Negative) Urine RBC 14 H (0-5) /hpf Urine WBC 23 H (0-5) /hpf Urine Mucus Few H (None) /hpf Assessment and Plan (1) Acute abdomen Status: Acute (2) Perforated gastric ulcer Status: Acute Plan: We will continue the NG tube and nothing by mouth. Continue IV Protonix 40 mg twice a day. Continue antibiotics. Continue SCDs incentive spirometer and subcutaneous heparin. Appreciate the medical teams recommendations and aid in management as well.
--- NOTE | 2017-08-17 19:07 | PN ---
PROGRESS NOTE DATE OF SERVICE: 08/17/2017 This 56-year-old gentleman admitted with gastric perforation after surgery is improving significantly. No chest pain. No palpitations. NG tube in situ. The patient also had features of bronchitis and probably COPD. Also chest x-ray showed some atelectasis. No focal pneumonia evident. REVIEW OF SYSTEMS: CARDIOVASCULAR: No angina. RESPIRATORY: As mentioned earlier. GI: Mentioned earlier. : No dysuria. CURRENT MEDICATIONS: Reviewed and include: 1. DuoNeb q.i.d. and p.r.n. 2. Heparin 5000 subcu q.i.d. 3. Dilaudid 1 mg q.3h p.r.n. 4. Ativan 1 mg q.4h p.r.n. 5. Narcan 0.2 q.2h p.r.n. 6. Habitrol 14 daily. 7. Zofran 4 mg IV q.2. 8. Protonix 40 mg IV daily. 9. Flomax 0.4 daily. EXAM: Alert, oriented x3. The pulse is 56, blood pressure 130/82, respiration 17, temperature 97.7, pulse ox 97% on room air. HEENT: Conjunctivae normal. NECK: No jugular venous distention. CARDIOVASCULAR: S1, S2. RESPIRATORY: Breath sounds diminished in the bases. Bilateral scattered rhonchi and crackles. ABDOMEN: Soft, status post surgery. LEGS: No edema. NERVOUS SYSTEM: No focal deficits. LABS: WBC 9, hemoglobin 12.8, sodium 146. UA noted. ASSESSMENT: 1. Acute perforated gastric ulcer, status post exploratory laparotomy as well as modified Philip patch with repair of perforated gastric ulcer. 2. Possible chronic obstructive pulmonary disease. 3. Bilateral lower lobe atelectasis. 4. History of nicotine dependence. 5. Rule out urinary tract infection. 6. Hypertension. 7. History hepatitis C. 8. Increased ALT. 9. History of substance abuse. 10.Anxiety, bipolar, depression. RECOMMENDATIONS AND DISCUSSION: I recommend to continue current management, symptomatic treatment. Continue the bronchodilators. Optimize bronchodilator treatment. Incentive spirometry. Continue monitor. Cultures. Closely follow with Surgery. Further recommendations to follow. DVT prophylaxis. The rest of the management per Surgery. Pain medications. Labs also have been noted. MMODL / IJN: [id number] /
[2017-08-17] MEDS: PANTOPRAZOLE 40 MG/10 ML VIAL IVP SCH (21:01)
[2017-08-18] MEDS: LORazepam 2 MG/ML INJ IV PRN ×5 (00:12→21:57)
[2017-08-18] MEDS: HYDROmorphone 1 MG/ML 1 ML SYRINGE IVP PRN ×6 (00:12→21:57)
[2017-08-18] MEDS: HEPARIN SODIUM,PORCINE 5,000 UNIT/ML 1 ML VIAL SQ SCH ×2 (00:17→09:07)
[2017-08-18] MEDS: SODIUM CHLORIDE 0.9% 1,000 ML IV SCH ×4 (06:30→16:17)
[2017-08-18] MEDS: IPRATROPIUM-ALBUTEROL 3 ML NEB INHALATION SCH ×3 (06:58→20:57)
--- NOTE | 2017-08-18 08:19 | P.PN ---
Subjective Principal diagnosis: Perforated gastric ulcer Patient doing well, no complaints overnight. Abdominal pain improved. Passing small amount afflatus. No bowel movement yet. Afebrile. Patient is up walking frequently. Lawrence is out and he is voiding. Objective - Vital Signs Vital signs: Vital Signs Temp 98.0 F 08/18/17 02:00 Pulse 68 08/18/17 07:10 Resp 16 08/18/17 02:00 BP 153/80 08/18/17 02:00 Pulse Ox 95 08/18/17 06:58 Intake & Output 08/17/17 08/18/17 08/18/17 18:59 06:59 18:59 Intake Total 600 1800 Output Total 980 260 Balance -380 1540 Weight 101.151 kg Intake: Intake, IV Titration 600 1800 Amount Sodium Chloride 0.9% 1, 600 1800 000 ml @ 150 mls/hr IV . Q6H40M [facility] Rx#:[id number] Oral 0 Output: Gastric Drainage 350 200 Drainage 50 60 Left Abdomen 50 60 Urine 580 Uretheral ([place]rence) 300 Other: Voiding Method Indwelling Catheter # Voids 2 - Constitutional General appearance: Present: cooperative - Respiratory Details: Nonlabored breathing. - Cardiovascular Rhythm: regular - Gastrointestinal Gastrointestinal Comment(s): Abdomen is soft, nondistended, expected incisional tenderness. Incisions are clean dry and intact. BETTY drain is serosanguineous. Minimal bilious output from NG tube - Musculoskeletal Musculoskeletal: Present: gait normal - Psychiatric Psychiatric: Present: A&O x's 3 - Labs CBC & Chem 7: 08/17/17 08:17 08/17/17 08:17 Labs: Abnormal Lab Results - Last 24 Hours (Table) 08/17/17 08/17/17 Range/Units 08: 08:17 RBC 4.24 L (4.30-5.90) m/uL Hgb 12.8 L (13.0-17.5) gm/dL Plt Count 95 L (150-450) k/uL Neutrophils # 7.8 H (1.3-7.7) k/uL Lymphocytes # 0.6 L (1.0-4.8) k/uL Sodium 146 H (137-145) mmol/L Chloride 113 H (98-107) mmol/L BUN 21 H (9-20) mg/dL Albumin 3.4 L (3.5-5.0) g/dL Assessment and Plan (1) Acute abdomen Status: Acute (2) Perforated gastric ulcer Status: Acute Plan: Overall patient is improving. BETTY drain is much more clear today, pain is well controlled, I will plan for an upper GI tomorrow. If upper GI is negative for any leak we will DC NG tube and start patient on a clear liquid diet. Continue antibiotics for now secondary to gross peritoneal contamination. Platelet count dropped from 145-95, this is less than a 50% drop and likely just secondary to consumption. I appreciate recommendations from Dr. Evangelista.
[2017-08-18] MEDS: TAMSULOSIN 0.4 MG CAP.ER.24H PO SCH (08:35)
[2017-08-18] MEDS: PANTOPRAZOLE 40 MG/10 ML VIAL IVP SCH ×2 (08:35→21:57)
[2017-08-18] MEDS: NICOTINE 14MG/24HR PATCH TRANSDERM SCH (08:35)
[2017-08-18 08:39] LABS: Basophils % (A) 1 %; CH 31.2; CHCM 33.5; Eosinophils # (A) 0.1 k/uL (0-0.7); Eosinophils % (A) 1 %; HCT 38.4 % (39.0-53.0); HDW 2.59; HGB 12.2 gm/dL (13.0-17.5); Luc # (Auto) 0.08; Luc % (Auto) 1; Lymphocytes # (A) 0.8 k/uL (1.0-4.8); Lymphocytes % (A) 13 %; MCH 29.9 pg (25.0-35.0); MCHC 31.9 g/dL (31.0-37.0); MCV 93.8 fL (80.0-100.0); Mean Platelet Volume 8.3; Monocytes # (A) 0.5 k/uL (0-1.0); Monocytes % (A) 7 %; Neutrophils # (A) 4.8 k/uL (1.3-7.7); Neutrophils % (A) 77 %; RBC 4.09 m/uL (4.30-5.90); RDW 15.6 % (11.5-15.5); WBC 6.2 k/uL (3.8-10.6); WBC (Perox) 5.86
[2017-08-18 08:49] LABS: Anion Gap 10 mmol/L; Blood Urea Nitrogen 23 mg/dL (9-20); Calcium 8.5 mg/dL (8.4-10.2); Carbon Dioxide 20 mmol/L (22-30); Chloride 113 mmol/L (98-107); Glucose 78 mg/dL (74-99); Non-African American GFR(MDRD) >60 (>60 ml/min/1.73 sqM); Potassium 3.4 mmol/L (3.5-5.1); Sodium 143 mmol/L (137-145)
--- NOTE | 2017-08-18 20:01 | PN ---
PROGRESS NOTE DATE OF SERVICE: 08/18/2010 This 56-year-old gentleman who was admitted with gastric perforation also had thrombocytopenia. No chest pain. No palpitations. No fever. EXAM: Alert, oriented x3. Pulse is 60, blood pressure is 160/80, respiration 18, temperature 98.2, pulse ox 97% on room air. HEENT: Conjunctivae normal. NECK: No jugular venous distention. CARDIOVASCULAR: S1, S2 RESPIRATORY: Breath sounds diminished in the bases. A few scattered rhonchi ABDOMEN: Soft, status post surgery. LEGS: No edema. NERVOUS SYSTEM: No focal deficits. LABS: WBC 6, hemoglobin is 12.2, and platelets 105. Sodium 143, potassium 4.3. ASSESSMENT: 1. Acute perforated gastric ulcer, status post exploratory laparotomy as well as modified Philip patch with repair of perforated gastric ulcer. 2. Possible chronic obstructive pulmonary disease. 3. Bilateral lower lobe atelectasis. 4. History of nicotine dependence. 5. Thrombocytopenia. RECOMMENDATIONS AND DISCUSSION: I recommend to continue current management and symptomatic treatment. Will stop the heparin and spirometry. Monitor closely. Prognosis guarded because of multiple complex medical issues. Further recommendations to follow. MMODL / IJN: [id number] /
[2017-08-19] MEDS: LORazepam 2 MG/ML INJ IV PRN ×3 (02:49→21:42)
[2017-08-19] MEDS: HYDROmorphone 1 MG/ML 1 ML SYRINGE IVP PRN ×3 (02:49→21:45)
[2017-08-19 03:53] VITALS: RESP 16
[2017-08-19] MEDS: IPRATROPIUM-ALBUTEROL 3 ML NEB INHALATION SCH ×3 (08:23→20:36)
[2017-08-19] MEDS: TAMSULOSIN 0.4 MG CAP.ER.24H PO SCH (09:00)
[2017-08-19] MEDS: SODIUM CHLORIDE 0.9% 1,000 ML IV SCH ×2 (09:13→11:40)
--- NOTE | 2017-08-19 09:44 | FL ---
EXAMINATION TYPE: FL esophagus cervic/pharynx DATE OF EXAM: 08/19/2017 HISTORY: Post ulcer repair COMPARISON: NONE TECHNIQUE: A double contrast esophagram is performed utilizing air and barium. FINDINGS: Exam somewhat limited. NG tube is is in place with tip in the distal esophagus, drainage catheter als o present within the abdomen. There is no obstruction to flow. No extravasation of contrast material. 1 minute 48 seconds fluoroscopy time, 17 intraoperative C-arm images IMPRESSION: No evident leak
[2017-08-19] MEDS: HYDROmorphone 0.5 MG/0.5 ML SYRINGE IVP PRN ×2 (09:54→14:12)
[2017-08-19] MEDS: PANTOPRAZOLE 40 MG/10 ML VIAL IVP SCH ×2 (09:56→21:49)
[2017-08-19] MEDS: NICOTINE 14MG/24HR PATCH TRANSDERM SCH (09:57)
--- NOTE | 2017-08-19 12:31 | P.PN ---
Subjective Progress Note Date: 08/19/17 Principal diagnosis: Perforated gastric ulcer Patient doing well ambulating, pain is well controlled, afebrile, no complaints overnight. Objective - Vital Signs Vital signs: Vital Signs Temp 98.0 F 08/19/17 07:00 Pulse 56 L 08/19/17 11:36 Resp 16 08/19/17 07:00 BP 165/81 08/19/17 11:36 Pulse Ox 96 08/19/17 07:00 Intake & Output 08/18/17 08/19/17 08/19/17 18:59 06:59 18:59 Intake Total 1800 Output Total 45 270 Balance -45 1530 Intake: Intake, IV Titration 1800 Amount Sodium Chloride 0.9% 1, 1800 000 ml @ 150 mls/hr IV . Q6H40M [facility] Rx#:[id number] Output: Gastric Drainage 200 Drainage 45 70 Left Abdomen 45 70 Other: Voiding Method Toilet # Voids 3 - Constitutional General appearance: Present: cooperative - Respiratory Details: Nonlabored breathing - Cardiovascular Rhythm: regular - Gastrointestinal Gastrointestinal Comment(s): Soft, nondistended, expected incisional tenderness to palpation, BETTY drain serous minimal output, incisions are clean dry and intact - Psychiatric Psychiatric: Present: A&O x's 3 - Labs CBC & Chem 7: 08/18/17 08:07 08/18/17 08:07 Assessment and Plan (1) Acute abdomen Status: Acute (2) Perforated gastric ulcer Status: Acute Plan: Plan for today is to obtain upper GI. If upper GI shows no leak plan will be to remove NG tube and start the patient on sips and ice chips. Continue ambulating.
--- NOTE | 2017-08-19 14:21 | P.PN ---
Subjective patient is status post laparotomy for perforated peptic ulcer and patient is on Protonix at this point of time not on any IV antibiotics. Patient is otherwise clinically doing well is hyperchloremic because of his IV fluids are being switched to half-normal saline. Patient did pass gas does have sluggish bowel sounds. M leading in the hallway clinically doing well. Potassium will supplemented. Patient has minor mild sinus bradycardia asymptomatic patient also occasionally had first-degree AV block no further intervention at this point of time. Constitutional: Denied any fatigue denied any fever. Cardio vascular: denied any chest pain, palpitations Gastrointestinal denied any nausea vomiting Pulmonary: Denied any shortness of breath cough Neurologic denied any new focal deficits Objective - Vital Signs Vital signs: Vital Signs Temp 98.0 F 08/19/17 07:00 Pulse 56 L 08/19/17 11:36 Resp 16 08/19/17 07:00 BP 165/81 08/19/17 11:36 Pulse Ox 96 08/19/17 07:00 Intake & Output 08/18/17 08/19/17 08/19/17 18:59 06:59 18:59 Intake Total 1800 Output Total 45 270 Balance -45 1530 Intake: Intake, IV Titration 1800 Amount Sodium Chloride 0.9% 1, 1800 000 ml @ 150 mls/hr IV . Q6H40M [facility] Rx#:[id number] Output: Gastric Drainage 200 Drainage 45 70 Left Abdomen 45 70 Other: Voiding Method Toilet # Voids 3 - Exam PHYSICAL EXAMINATION: GENERAL: The patient is alert and oriented x3, not in any acute distress. Well developed, well nourished. HEENT: Pupils are round and equally reacting to light. EOMI. No scleral icterus. No conjunctival pallor. Normocephalic, atraumatic. No pharyngeal erythema. No thyromegaly. CARDIOVASCULAR: S1 and S2 present. No murmurs, rubs, or gallops. PULMONARY: Chest is clear to auscultation, no wheezing or crackles. ABDOMEN: Soft, nontender, nondistended, hyporeactive bowel sounds. No palpable organomegaly. MUSCULOSKELETAL: No joint swelling or deformity. EXTREMITIES: No cyanosis, clubbing, or pedal edema. NEUROLOGICAL: Gross neurological examination did not reveal any focal deficits. SKIN: No rashes. - Labs CBC & Chem 7: 08/18/17 08:07 08/18/17 08:07 Assessment and Plan Plan: #1 perforated peptic ulcer: Status post peritoneal lavage and laparotomy.patient is on Protonix #2 hyperchloremia management of fluids as mentioned above. #3 hypokalemia supplementation as mentioned above. #4 sinus bradycardia first-degree AV block asymptomatic no further intervention.is not on any rate control medications. #5hypertension mildly elevated blood pressure not a great concern at this point of time patient can be resumed on lisinopril whenever he can take by mouth medications do not recommend any IV antidepressant medications or topical patch at this time. #6 history of hepatitis C will need to follow with gastroenterology once his discharge from the hospital.
[2017-08-19] MEDS: SODIUM CHLORIDE 0.45% 1,000 ML IV SCH (16:39)
[2017-08-19] MEDS: LISINOPRIL 10 MG TAB PO SCH (20:09)
[2017-08-20] MEDS: ONDANSETRON 4 MG/2 ML VIAL IVP PRN (00:24)
[2017-08-20] MEDS: HYDROmorphone 1 MG/ML 1 ML SYRINGE IVP PRN ×5 (00:34→21:53)
[2017-08-20] MEDS: LORazepam 2 MG/ML INJ IV PRN ×4 (05:04→22:19)
[2017-08-20] MEDS: SODIUM CHLORIDE 0.45% 1,000 ML IV SCH ×2 (05:05→18:01)
[2017-08-20] MEDS: IPRATROPIUM-ALBUTEROL 3 ML NEB INHALATION SCH ×3 (06:53→20:06)
[2017-08-20] MEDS: NICOTINE 14MG/24HR PATCH TRANSDERM SCH (08:58)
[2017-08-20] MEDS: LISINOPRIL 10 MG TAB PO SCH (08:58)
[2017-08-20] MEDS ORDERED: LISINOPRIL 10 MG TAB PO SCH (09:00)
[2017-08-20] MEDS: PANTOPRAZOLE 40 MG/10 ML VIAL IVP SCH ×2 (09:07→22:19)
[2017-08-20] MEDS: TAMSULOSIN 0.4 MG CAP.ER.24H PO SCH (09:07)
--- NOTE | 2017-08-20 09:56 | P.PN ---
Subjective Progress Note Date: 08/20/17 Principal diagnosis: Perforated gastric ulcer Patient is doing well with no complaints today. He had an episode of abdominal cramping and pain overnight he relates this to attempting to pass a bowel movement secondary to being told that he could have more food when he does. This was relieved with pain medication and he states that he is not having any pain now. He is afebrile. He denies any nausea vomiting. He is passing flatus but no bowel movement yet. No other complaints Objective - Vital Signs Vital signs: Vital Signs Temp 98.5 F 08/20/17 07:00 Pulse 62 08/20/17 07:10 Resp 16 08/20/17 07:00 BP 136/78 08/20/17 07:00 Pulse Ox 95 08/20/17 07:00 Intake & Output 08/19/17 08/20/17 08/20/17 18:59 06:59 18:59 Intake Total 600 Output Total 800 140 40 Balance -800 460 -40 Intake: Intake, IV Titration 600 Amount Sodium Chloride 0.45% 1, 600 000 ml @ 75 mls/hr IV . [id number] [facility] Rx#:[id number] Output: Drainage 140 40 Left Abdomen 140 40 Urine 800 Other: # Voids 1 - Constitutional General appearance: Present: cooperative - Respiratory Details: Nonlabored breathing - Cardiovascular Rhythm: regular - Gastrointestinal Gastrointestinal Comment(s): Soft nondistended. Incisional tenderness. Incision clean dry and intact. BETTY drain with serous output. - Psychiatric Psychiatric: Present: A&O x's 3 - Labs CBC & Chem 7: 08/18/17 08:07 08/18/17 08:07 Assessment and Plan (1) Acute abdomen Status: Acute (2) Perforated gastric ulcer Status: Acute Plan: Overall patient is doing well. His upper GI yesterday showed no leak. He's passing flatus. He can start on clear liquid diet today and oral medications. He is continuing to ambulate often in the halls. Continue SCDs. Continue omeprazole. Antibiotics DC'd. As soon as patient has bowel movement we'll continue to advance diet as tolerated. Once tolerating diet will plan for discharge.
[2017-08-20 10:50] LABS: Basophils % (A) 1 %; CH 30.4; CHCM 33.9; Eosinophils # (A) 0.2 k/uL (0-0.7); Eosinophils % (A) 3 %; HCT 37.2 % (39.0-53.0); HDW 2.72; HGB 12.6 gm/dL (13.0-17.5); Immature Gran Flag Slight; Luc # (Auto) 0.08; Luc % (Auto) 2; Lymphocytes # (A) 0.4 k/uL (1.0-4.8); Lymphocytes % (A) 8 %; MCH 30.6 pg (25.0-35.0); MCHC 33.9 g/dL (31.0-37.0); MCV 90.1 fL (80.0-100.0); Mean Platelet Volume 9.4; Monocytes # (A) 0.4 k/uL (0-1.0); Monocytes % (A) 7 %; Neutrophils # (A) 3.8 k/uL (1.3-7.7); Neutrophils % (A) 79 %; RBC 4.13 m/uL (4.30-5.90); RDW 14.3 % (11.5-15.5); WBC 4.9 k/uL (3.8-10.6); WBC (Perox) 5.04
[2017-08-20 11:23] LABS: Anion Gap 11 mmol/L; Blood Urea Nitrogen 14 mg/dL (9-20); Calcium 8.4 mg/dL (8.4-10.2); Carbon Dioxide 19 mmol/L (22-30); Chloride 110 mmol/L (98-107); Glucose 98 mg/dL (74-99); Non-African American GFR(MDRD) >60 (>60 ml/min/1.73 sqM); Potassium 3.2 mmol/L (3.5-5.1); Sodium 140 mmol/L (137-145)
[2017-08-20 12:05] LABS: Manual Review Performed; RBC Morphology Normal
--- NOTE | 2017-08-20 15:10 | P.PN ---
Subjective patient is status post laparotomy for perforated peptic ulcer and patient is on Protonix at this point of time not on any IV antibiotics. Patient is otherwise clinically doing well is hyperchloremic because of his IV fluids are being switched to half-normal saline. Patient did pass gas does have sluggish bowel sounds. M leading in the hallway clinically doing well. Potassium will supplemented. Patient has minor mild sinus bradycardia asymptomatic patient also occasionally had first-degree AV block no further intervention at this point of time. 08/20/2017 Patient is doing much better today did not move his bowels yet, passing gas Constitutional: Denied any fatigue denied any fever. Cardio vascular: denied any chest pain, palpitations Gastrointestinal denied any nausea vomiting Pulmonary: Denied any shortness of breath cough Neurologic denied any new focal deficits Objective - Vital Signs Vital signs: Vital Signs Temp 98.5 F 08/20/17 07:00 Pulse 62 08/20/17 14:02 Resp 16 08/20/17 07:00 BP 136/78 08/20/17 07:00 Pulse Ox 95 08/20/17 07:00 Intake & Output 08/19/17 08/20/17 08/20/17 18:59 06:59 18:59 Intake Total 600 Output Total 800 140 40 Balance -800 460 -40 Weight 101.151 kg Intake: Intake, IV Titration 600 Amount Sodium Chloride 0.45% 1, 600 000 ml @ 75 mls/hr IV . [id number] [facility] Rx#:[id number] Output: Drainage 140 40 Left Abdomen 140 40 Urine 800 Other: # Voids 1 - Exam PHYSICAL EXAMINATION: GENERAL: The patient is alert and oriented x3, not in any acute distress. Well developed, well nourished. HEENT: Pupils are round and equally reacting to light. EOMI. No scleral icterus. No conjunctival pallor. Normocephalic, atraumatic. No pharyngeal erythema. No thyromegaly. CARDIOVASCULAR: S1 and S2 present. No murmurs, rubs, or gallops. PULMONARY: Chest is clear to auscultation, no wheezing or crackles. ABDOMEN: Soft, nontender, nondistended, normoactive bowel sounds. No palpable organomegaly. MUSCULOSKELETAL: No joint swelling or deformity. EXTREMITIES: No cyanosis, clubbing, or pedal edema. NEUROLOGICAL: Gross neurological examination did not reveal any focal deficits. SKIN: No rashes. - Labs CBC & Chem 7: 08/20/17 10:21 10 10:21 Labs: Abnormal Lab Results - Last 24 Hours (Table) 08/20/17 08/20/17 Range/Units 10:21 10:21 RBC 4.13 L (4.30-5.90) m/uL Hgb 12.6 L (13.0-17.5) gm/dL Hct 37.2 L (39.0-53.0) % Plt Count 129 L (150-450) k/uL Lymphocytes # 0.4 L (1.0-4.8) k/uL Potassium 3.2 L (3.5-5.1) mmol/L Chloride 110 H (98-107) mmol/L Carbon Dioxide 19 L (22-30) mmol/L Creatinine 0.65 L (0.66-1.25) mg/dL Assessment and Plan Plan: #1 perforated peptic ulcer: Status post peritoneal lavage and laparotomy.patient is on Protonix #2 hyperchloremia management of fluids as mentioned above. #3 hypokalemia supplementation as mentioned above. #4 sinus bradycardia first-degree AV block asymptomatic no further intervention.is not on any rate control medications. #5hypertension mildly elevated blood pressure not a great concern at this point of time patient can be resumed on lisinopril whenever he can take by mouth medications do not recommend any IV antidepressant medications or topical patch at this time. #6 history of hepatitis C will need to follow with gastroenterology once his discharge from the hospital.
[2017-08-21] MEDS: HYDROmorphone 1 MG/ML 1 ML SYRINGE IVP PRN (04:56)
[2017-08-21] MEDS: ONDANSETRON 4 MG/2 ML VIAL IVP PRN (04:56)
[2017-08-21] MEDS: LORazepam 2 MG/ML INJ IV PRN ×3 (04:56→22:34)
[2017-08-21] MEDS: SODIUM CHLORIDE 0.45% 1,000 ML IV SCH (04:57)
[2017-08-21] MEDS: IPRATROPIUM-ALBUTEROL 3 ML NEB INHALATION SCH ×3 (07:45→18:54)
[2017-08-21 07:59] LABS: Basophils % (A) 1 %; CHCM 34.5; Eosinophils # (A) 0.3 k/uL (0-0.7); Eosinophils % (A) 5 %; HDW 2.72; HGB 13.3 gm/dL (13.0-17.5); Immature Gran Flag Moderate; Luc # (Auto) 0.15; Luc % (Auto) 3; Lymphocytes # (A) 0.7 k/uL (1.0-4.8); Lymphocytes % (A) 14 %; MCH 30.8 pg (25.0-35.0); MCHC 34.1 g/dL (31.0-37.0); MCV 90.3 fL (80.0-100.0); Mean Platelet Volume 10.5; Monocytes # (A) 0.4 k/uL (0-1.0); Monocytes % (A) 8 %; Neutrophils # (A) 3.8 k/uL (1.3-7.7); Neutrophils % (A) 71 %; RBC 4.32 m/uL (4.30-5.90); RDW 14.4 % (11.5-15.5); WBC 5.4 k/uL (3.8-10.6)
[2017-08-21 08:33] LABS: Manual Review Performed
[2017-08-21 08:41] LABS: Anion Gap 11 mmol/L; Blood Urea Nitrogen 6 mg/dL (9-20); Carbon Dioxide 23 mmol/L (22-30); Chloride 106 mmol/L (98-107); Glucose 89 mg/dL (74-99); Non-African American GFR(MDRD) >60 (>60 ml/min/1.73 sqM); Potassium 3.4 mmol/L (3.5-5.1); Sodium 140 mmol/L (137-145)
[2017-08-21] MEDS ORDERED: Magnesium Replacement Protocol 1 EACH MISC MISCELLANE PRN (09:03)
[2017-08-21] MEDS ORDERED: Potassium Replacement Protocol 1 EACH MISC MISCELLANE PRN (09:03)
[2017-08-21] MEDS ORDERED: POTASSIUM CHLORIDE ER 20 MEQ TAB.ER PO STA ×2 (09:16→18:43)
[2017-08-21] MEDS ORDERED: DOCUSATE 100 MG CAP PO ONE (09:16)
--- NOTE | 2017-08-21 09:26 | P.PN ---
Subjective Progress Note Date: 08/21/17 Principal diagnosis: Perforated gastric ulcer Patient is doing well today. He still of emulating the halls. He has arthritis still no bowel movement. He has some bowel sounds. His pain is well- controlled. He is tolerating his clear liquid diet. No other complaints at this time Objective - Vital Signs Vital signs: Vital Signs Temp 97.9 F 08/21/17 07:25 Pulse 64 08/21/17 07:56 Resp 16 08/21/17 07:25 BP 178/87 08/21/17 07:25 Pulse Ox 97 08/21/17 07:25 Intake & Output 08/20/17 08/21/17 08/21/17 18:59 06:59 18:59 Intake Total 563 560 Output Total 40 120 Balance 523 440 Weight 101.151 kg Intake: Intake, IV Titration 563 Amount Sodium Chloride 0.45% 1, 563 000 ml @ 75 mls/hr IV . [id number] [facility] Rx#:[id number] Oral 560 Output: Drainage 40 120 Left Abdomen 40 120 Other: Voiding Method Toilet # Voids 3 # Bowel Movements 0 - Constitutional General appearance: Present: cooperative - Respiratory Details: Nonlabored breathing - Cardiovascular Rhythm: regular - Gastrointestinal Gastrointestinal Comment(s): Soft nontender nondistended. BETTY drain serous. Incision clean dry and intact - Psychiatric Psychiatric: Present: A&O x's 3 - Labs CBC & Chem 7: 08/21/17 07:10 08/21/17 07:10 Labs: Abnormal Lab Results - Last 24 Hours (Table) 08/20/17 08/20/17 08/21/17 Range/Units 10:21 10:21 07:10 RBC 4.13 L (4.30-5.90) m/uL Hgb 12.6 L (13.0-17.5) gm/dL Hct 37.2 L (39.0-53.0) % Plt Count 129 L 128 L (150-450) k/uL Lymphocytes # 0.4 L 0.7 L (1.0-4.8) k/uL Potassium 3.2 L (3.5-5.1) mmol/L Chloride 110 H (98-107) mmol/L Carbon Dioxide 19 L (22-30) mmol/L BUN (9-20) mg/dL Creatinine 0.65 L (0.66-1.25) mg/dL Calcium (8.4-10.2) mg/dL 08/21/17 Range/Units 07:10 RBC (4.30-5.90) m/uL Hgb (13.0-17.5) gm/dL Hct (39.0-53.0) % Plt Count (150-450) k/uL Lymphocytes # (1.0-4.8) k/uL Potassium 3.4 L (3.5-5.1) mmol/L Chloride (98-107) mmol/L Carbon Dioxide (22-30) mmol/L BUN 6 L (9-20) mg/dL Creatinine 0.64 L (0.66-1.25) mg/dL Calcium 8.0 L (8.4-10.2) mg/dL Assessment and Plan (1) Acute abdomen Status: Acute (2) Perforated gastric ulcer Status: Acute Plan: Patient continues to improve. He is tolerating his clear liquid diet. When he has a bowel movement he can be advanced to a soft diet and when he is tolerating that J.P.drain may be removed and patient may be discharged. He'll be discharged home with pain medication and stool softener and a prescription for omeprazole 40 mg daily. Today his potassium was replaced and he was switched to oral pain medication and now that he is tolerating a clear liquid diet his fluids can be KVO.
[2017-08-21] MEDS: HYDROcodone/APAP 5-325MG 1 EACH TAB PO PRN ×2 (09:49→18:22)
[2017-08-21] MEDS: LISINOPRIL 10 MG TAB PO SCH (09:51)
[2017-08-21] MEDS: TAMSULOSIN 0.4 MG CAP.ER.24H PO SCH (09:52)
[2017-08-21] MEDS: PANTOPRAZOLE 40 MG/10 ML VIAL IVP SCH ×2 (09:53→20:14)
[2017-08-21] MEDS: NICOTINE 14MG/24HR PATCH TRANSDERM SCH (09:54)
[2017-08-21] MEDS: HYDROmorphone 0.5 MG/0.5 ML SYRINGE IVP PRN (11:26)
[2017-08-21] MEDS: MAGNESIUM SULFATE-D5W PMX 1 GM in DEXTROSE/WATER 1 100ML.BAG IVPB SCH ×2 (12:16→14:25)
[2017-08-21] MEDS ORDERED: POTASSIUM CHLORIDE ER 20 MEQ TAB.ER PO ONE (13:00)
[2017-08-21] MEDS: amLODIPine 5 MG TAB PO SCH (14:35)
--- NOTE | 2017-08-21 19:32 | P.PN ---
Subjective Progress Note Date: 08/21/17 Progress note being dictated for Dr. Mckeon. Interval history:patient is status post laparotomy for perforated peptic ulcer and patient is on Protonix at this point of time not on any IV antibiotics. Patient is otherwise clinically doing well is hyperchloremic because of his IV fluids are being switched to half-normal saline. Patient did pass gas does have sluggish bowel sounds. M leading in the hallway clinically doing well. Potassium will supplemented. Patient has minor mild sinus bradycardia asymptomatic patient also occasionally had first-degree AV block no further intervention at this point of time. 08/20/2017 Patient is doing much better today did not move his bowels yet, passing gas 08/21/2017. Passing flatus, small bowel movement. Diet advanced to soft as per surgery, tolerated well, denies nausea vomiting. Hypertensive, systolic blood pressures in the 170s. Denies chest pain, palpitations or shortness of breath. Denies any focal deficits. Objective - Vital Signs Vital signs: Vital Signs Temp 98.5 F 08/21/17 14:33 Pulse 60 08/21/17 14:33 Resp 16 08/21/17 14:33 BP 131/79 08/21/17 14:33 Pulse Ox 94 L 08/21/17 14:33 Intake & Output 08/20/17 08/21/17 08/21/17 18:59 06:59 18:59 Intake Total 563 560 Output Total 40 120 30 Balance 523 440 -30 Weight 101.151 kg Intake: Intake, IV Titration 563 Amount Sodium Chloride 0.45% 1, 563 000 ml @ 75 mls/hr IV . [id number] PENDING SALE TO [facility] Rx#:[id number] Oral 560 Output: Drainage 40 120 30 Left Abdomen 40 120 30 Other: Voiding Method Toilet Toilet # Voids 3 # Bowel Movements 0 - Exam GENERAL: The patient is alert and oriented x3, not in any acute distress. Sitting up in chair. Well developed, well nourished. HEENT: Pupils are round and equally reacting to light. EOMI. No scleral icterus. No conjunctival pallor. Normocephalic, atraumatic. No pharyngeal erythema. No thyromegaly. CARDIOVASCULAR: S1 and S2 present. No murmurs, rubs, or gallops. PULMONARY: Chest is clear to auscultation, no wheezing or crackles. ABDOMEN: Soft, nondistended, status post surgery, normoactive bowel sounds. MUSCULOSKELETAL: No joint swelling or deformity. EXTREMITIES: No cyanosis, clubbing, or pedal edema. NEUROLOGICAL: Gross neurological examination did not reveal any focal deficits. SKIN: No rashes. - Labs CBC & Chem 7: 08/21/17 07:10 08/21/17 17:48 Labs: Abnormal Lab Results - Last 24 Hours (Table) 08/21/17 08/21/17 08/21/17 Range/Units 07:10 07:10 07:10 Plt Count 128 L (150-450) k/uL Lymphocytes # 0.7 L (1.0-4.8) k/uL Potassium 3.4 L (3.5-5.1) mmol/L BUN 6 L (9-20) mg/dL Creatinine 0.64 L (0.66-1.25) mg/dL Calcium 8.0 L (8.4-10.2) mg/dL Magnesium 1.5 L (1.6-2.3) mg/dL Assessment and Plan Plan: #1 perforated peptic ulcer: Status post peritoneal lavage and laparotomy.patient is on Protonix #2 hyperchloremia resolved #3 hypokalemia supplementation as mentioned above. #4 sinus bradycardia first-degree AV block asymptomatic no further intervention.is not on any rate control medications. #5hypertension mildly elevated blood pressure #6 history of hepatitis C will need to follow with gastroenterology once his discharge from the hospital. Plan: Continue on current medication regime ,monitoring and symptomatic treatment. Potassium and magnesium being supplemented as per replacement protocol. IV fluids discontinued, Norvasc added to med regime for hypertension. Discharge planning in progress as per surgery. Follow with PCP in 1 week. The impression and plan of care has been dictated as directed. : I performed a history and examination of this patient, discussed the same with the dictator. I agree with the dictator's note ,documented as a scribe. Any additional findings or plans will be noted.
[2017-08-21] MEDS: DOCUSATE 100 MG CAP PO SCH (20:14)
[2017-08-21] MEDS: POTASSIUM CHLORIDE ER 20 MEQ TAB.ER PO SCH ×2 (22:34→23:42)
[2017-08-22] MEDS: HYDROcodone/APAP 5-325MG 1 EACH TAB PO PRN ×3 (03:37→13:12)
[2017-08-22] MEDS: POTASSIUM CHLORIDE ER 20 MEQ TAB.ER PO SCH ×2 (03:37→04:37)
[2017-08-22 07:23] LABS: Basophils % (A) 0 %; CH 30.7; CHCM 33.7; Eosinophils # (A) 0.1 k/uL (0-0.7); Eosinophils % (A) 3 %; HCT 36.4 % (39.0-53.0); HDW 2.78; HGB 12.2 gm/dL (13.0-17.5); Luc # (Auto) 0.11; Luc % (Auto) 2; Lymphocytes # (A) 0.7 k/uL (1.0-4.8); Lymphocytes % (A) 15 %; MCH 30.6 pg (25.0-35.0); MCHC 33.4 g/dL (31.0-37.0); MCV 91.5 fL (80.0-100.0); Mean Platelet Volume 8.4; Monocytes # (A) 0.4 k/uL (0-1.0); Monocytes % (A) 10 %; Neutrophils # (A) 3.3 k/uL (1.3-7.7); Neutrophils % (A) 70 %; RBC 3.97 m/uL (4.30-5.90); WBC 4.6 k/uL (3.8-10.6); WBC (Perox) 5.04
[2017-08-22 07:45] VITALS: BP 164/95; TEMP 96.8
[2017-08-22] MEDS: NICOTINE 14MG/24HR PATCH TRANSDERM SCH (07:48)
[2017-08-22] MEDS: amLODIPine 5 MG TAB PO SCH (07:48)
[2017-08-22] MEDS: DOCUSATE 100 MG CAP PO SCH (07:49)
[2017-08-22] MEDS: PANTOPRAZOLE 40 MG/10 ML VIAL IVP SCH (07:49)
[2017-08-22] MEDS: TAMSULOSIN 0.4 MG CAP.ER.24H PO SCH (07:49)
[2017-08-22] MEDS: LISINOPRIL 10 MG TAB PO SCH (07:49)
[2017-08-22 07:50] LABS: Blood Urea Nitrogen 5 mg/dL (9-20); Calcium 8.2 mg/dL (8.4-10.2); Carbon Dioxide 26 mmol/L (22-30); Glucose 100 mg/dL (74-99); Magnesium 1.7 mg/dL (1.6-2.3); Non-African American GFR(MDRD) >60 (>60 ml/min/1.73 sqM); Potassium 3.4 mmol/L (3.5-5.1); Sodium 142 mmol/L (137-145)
[2017-08-22 07:56] LABS: Anion Gap 9 mmol/L; Chloride 107 mmol/L (98-107)
[2017-08-22] MEDS: IPRATROPIUM-ALBUTEROL 3 ML NEB INHALATION SCH ×2 (08:23→13:17)
[2017-08-22] MEDS: LORazepam 2 MG/ML INJ IV PRN (09:39)
[2017-08-22 11:14] VITALS: PULSE 58
--- NOTE | 2017-08-22 17:18 | P.PN ---
Subjective Progress Note Date: 08/22/17 Progress note being dictated for Dr. Evangelista Interval history:patient is status post laparotomy for perforated peptic ulcer and patient is on Protonix at this point of time not on any IV antibiotics. Patient is otherwise clinically doing well is hyperchloremic because of his IV fluids are being switched to half-normal saline. Patient did pass gas does have sluggish bowel sounds. M leading in the hallway clinically doing well. Potassium will supplemented. Patient has minor mild sinus bradycardia asymptomatic patient also occasionally had first-degree AV block no further intervention at this point of time. 08/20/2017 Patient is doing much better today did not move his bowels yet, passing gas 08/21/2017. Passing flatus, small bowel movement. Diet advanced to soft as per surgery, tolerated well, denies nausea vomiting. Hypertensive, systolic blood pressures in the 170s. Denies chest pain, palpitations or shortness of breath. Denies any focal deficits. 08/22/2017 continues to do well, tolerating diet, passing flatus. Denies nausea vomiting. Potassium 3.4, magnesium 1.7. Denies chest pain, palpitations or increasing shortness of breath. Recently medicated for pain, systolic blood pressures in the low 160s. Ambulating, tolerating exertion well. Objective - Vital Signs Vital signs: Vital Signs Temp 96.8 F L 08/22/17 07:00 Pulse 54 L 08/22/17 08:31 Resp 16 08/22/17 07:00 BP 164/95 08/22/17 07:00 Pulse Ox 93 L 08/22/17 07:00 Intake & Output 08/21/17 08/22/17 08/22/17 18:59 06:59 18:59 Intake Total 830 930 Output Total 50 50 15 Balance 780 880 -15 Intake: IV 600 Sodium Chloride 0.45% 1, 600 000 ml @ 75 mls/hr IV . [id number] [facility] Rx#:[id number] Oral 230 930 Output: Drainage 50 50 15 Left Abdomen 50 50 15 Other: Voiding Method Toilet # Voids 1 - Exam GENERAL: The patient is alert and oriented x3, not in any acute distress. Sitting up in chair. Well developed, well nourished. HEENT: Pupils are round and equally reacting to light. EOMI. No scleral icterus. No conjunctival pallor. Normocephalic, atraumatic. No pharyngeal erythema. CARDIOVASCULAR: S1 and S2 present. No murmurs, rubs, or gallops. PULMONARY: Chest is clear to auscultation, no wheezing or crackles. ABDOMEN: Soft, nondistended, status post surgery, normoactive bowel sounds. MUSCULOSKELETAL: No joint swelling or deformity. EXTREMITIES: No cyanosis, clubbing, or pedal edema. NEUROLOGICAL: Gross neurological examination did not reveal any focal deficits. SKIN: No rashes. - Labs CBC & Chem 7: 08/22/17 06:42 08/22/17 06:42 Labs: Abnormal Lab Results - Last 24 Hours (Table) 08/21/17 08/22/17 08/22/17 Range/Units 20:10 00:42 06:42 RBC 3.97 L (4.30-5.90) m/uL Hgb 12.2 L (13.0-17.5) gm/dL Hct 36.4 L (39.0-53.0) % Plt Count 121 L (150-450) k/uL Lymphocytes # 0.7 L (1.0-4.8) k/uL Potassium 3.4 L 3.1 L (3.5-5.1) mmol/L BUN (9-20) mg/dL Glucose (74-99) mg/dL Calcium (8.4-10.2) mg/dL 08/22/17 Range/Units 06:42 RBC (4.30-5.90) m/uL Hgb (13.0-17.5) gm/dL Hct (39.0-53.0) % Plt Count (150-450) k/uL Lymphocytes # (1.0-4.8) k/uL Potassium 3.4 L (3.5-5.1) mmol/L BUN 5 L (9-20) mg/dL Glucose 100 H (74-99) mg/dL Calcium 8.2 L (8.4-10.2) mg/dL Assessment and Plan Plan: #1 perforated peptic ulcer: Status post peritoneal lavage and laparotomy. #2 hyperchloremia resolved #3 hypokalemia supplementation as mentioned above. #4 sinus bradycardia first-degree AV block asymptomatic #5hypertension mildly elevated blood pressure #6 history of hepatitis C will need to follow with gastroenterology once his discharge from the hospital. Plan: Continue on current medication regime ,monitoring and symptomatic treatment. Potassium and magnesium being supplemented as per replacement protocol. Discharge planning in progress for today as per surgery. Follow with PCP in 1 week. The impression and plan of care has been dictated as directed. : I performed a history and examination of this patient, discussed the same with the dictator. I agree with the dictator's note ,documented as a scribe. Any additional findings or plans will be noted.
--- NOTE | 2017-08-29 08:10 | P.DS ---
Providers Date of admission: 08/16/17 11:38 Attending physician: Viany Franks DO Consults: 08/16/17 16:24 Consult Physician Routine Consulting Provider: Marilia Evangelista Consult Reason/Comments: MEDICAL MANAGEMENT Do you want consulting provider notified?: Yes Primary care physician: Physician Nonstaff Patient Condition at Discharge: Stable Plan - Discharge Summary New Discharge Prescriptions: New HYDROcodone/APAP 5-325MG [Otis 5-325] 1 tab PO Q4HR PRN #30 tab PRN Reason: Pain Omeprazole 40 mg PO DAILY #30 capsule.dr Docusate [Colace] 100 mg PO BID #60 capsule amLODIPine [Norvasc] 5 mg PO DAILY #30 tab Nicotine 14Mg/24Hr Patch [Habitrol] 1 patch TRANSDERM DAILY #30 patch Continue HYDROcodone/APAP 10-325MG [Otis 10-325] 1 tab PO QID PRN PRN Reason: Pain Gabapentin 800 mg PO QID Albuterol Inhaler [Ventolin Hfa Inhaler] 1 - 2 puff INHALATION RT-Q6H PRN PRN Reason: Shortness Of Breath Escitalopram [Lexapro] 10 mg PO DAILY #30 tab hydrOXYzine HCL [Atarax] 75 mg PO HS PRN #30 tab PRN Reason: Insomnia QUEtiapine FUMARATE [SEROquel] 300 mg PO HS #30 tab Tamsulosin HCl [Flomax] 0.4 mg PO DAILY Lisinopril [Zestril] 10 mg PO DAILY ALPRAZolam [Xanax] 1 mg PO 5XD Discontinued Ibuprofen [Motrin] 600 mg PO TID PRN PRN Reason: Pain Ranitidine HCl [Zantac] 150 mg PO BID Discharge Medication List Albuterol Inhaler [Ventolin Hfa Inhaler] 1 - 2 puff INHALATION RT-Q6H PRN [History] Gabapentin 800 mg PO QID 07/29/17 [History] HYDROcodone/APAP 10-325MG [Otis 10-325] 1 tab PO QID PRN 07/29/17 [History] Escitalopram [Lexapro] 10 mg PO DAILY #30 tab 08/05/17 [Rx] QUEtiapine FUMARATE [SEROquel] 300 mg PO HS #30 tab 08/05/17 [Rx] hydrOXYzine HCL [Atarax] 75 mg PO HS PRN #30 tab 08/05/17 [Rx] ALPRAZolam [Xanax] 1 mg PO 5XD 08/16/17 [History] Lisinopril [Zestril] 10 mg PO DAILY 08/16/17 [History] Tamsulosin HCl [Flomax] 0.4 mg PO DAILY 08/16/17 [History] Docusate [Colace] 100 mg PO BID #60 capsule 08/21/17 [Rx] HYDROcodone/APAP 5-325MG [Otis 5-325] 1 tab PO Q4HR PRN #30 tab 08/21/17 [Rx] Omeprazole 40 mg PO DAILY #30 capsule. 08/21/17 [Rx] Nicotine 14Mg/24Hr Patch [Habitrol] 1 patch TRANSDERM DAILY #30 patch 08/22/17 [ Rx] amLODIPine [Norvasc] 5 mg PO DAILY #30 tab 08/22/17 [Rx] Follow up Appointment(s)/Referral(s): Dr. Luis Manuel Medina PCP [Other] - 1 Week Vinay Franks DO [Doctor of Osteopathic Medicine] - 08/29/17 9:00 am Harshil Velasco MD [STAFF PHYSICIAN] - 2 Weeks (re: Hep C.) Ambulatory/Diagnostic Orders: Complete Blood Count w/diff [LAB.AMB] Time Frame: 3 Days, Location: Determined By Patient Patient Instructions/Handouts: Exploratory Laparotomy (DC) Activity/Diet/Wound Care/Special Instructions: Activity as tolerated. Regular diet as tolerated. Do not take any NSAIDS must stop taking the motrin he was taking. Follow up in my office in one week. No smoking Discharge Disposition: HOME SELF-CARE
== END 2017-08-22 15:20 | disposition home or self-care (01) | DRG 330 ==
LOC: EC 09:08 → 3SUR 11:38
PROVIDERS: ADMIT Student in an Organized Health Care Education/Training Program; ATTEND Student in an Organized Health Care Education/Training Program
PROC: 0DU907Z Supplement Duodenum with Autologous Tissue Substitute, Open Approach (ICD-10-PCS; principal; 2017-08-16 12:10)
DX: K25.5 Chronic or unspecified gastric ulcer with perforation (principal); J98.11 Atelectasis; R45.851 Suicidal ideations; E87.8 Other disorders of electrolyte and fluid balance, not elsewhere classified; D69.6 Thrombocytopenia, unspecified; I10 Essential (primary) hypertension; F41.9 Anxiety disorder, unspecified; J44.9 Chronic obstructive pulmonary disease, unspecified; F31.9 Bipolar disorder, unspecified; I44.0 Atrioventricular block, first degree; R00.1 Bradycardia, unspecified; E87.6 Hypokalemia; F17.200 Nicotine dependence, unspecified, uncomplicated; K21.9 Gastro-esophageal reflux disease without esophagitis; Z86.19 Personal history of other infectious and parasitic diseases; Z79.891 Long term (current) use of opiate analgesic; Z88.2 Allergy status to sulfonamides; Z79.1 Long term (current) use of non-steroidal anti-inflammatories (NSAID); Z79.899 Other long term (current) drug therapy; Z71.6 Tobacco abuse counseling; Z87.11 Personal history of peptic ulcer disease; Z82.49 Family history of ischemic heart disease and other diseases of the circulatory system
CPT/HCPCS: 36415; 71010; 74177; 74210; 80048; 80053; 81001; 82150; 83605; 83690; 83735; 84132; 85025; 85610; 85730; 86850; 86900; 86901; 93005; 94640; 94760; 96361; 96374; 96375; 96376; 99285

== ENCOUNTER 2018-01-08 08:49 | Emergency (ER) | payer OTHER ==
[2018-01-08 08:59] VITALS: RESP 16
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
[2018-01-08 09:39] VITALS: BP 163/93; PULSE 100; TEMP 97.2
== END 2018-01-08 09:38 | disposition home or self-care (01) ==
LOC: EC 08:49
DX: R19.7 Diarrhea, unspecified (principal); F17.200 Nicotine dependence, unspecified, uncomplicated; Z88.2 Allergy status to sulfonamides; Z86.14 Personal history of Methicillin resistant Staphylococcus aureus infection; Z98.890 Other specified postprocedural states
CPT/HCPCS: 99283

== ENCOUNTER → 2018-01-13 | Outpatient (CLI) | payer OTHER ==
[2018-01-13 11:38] LABS: Blood Urea Nitrogen 20 mg/dL (9-20); Cholesterol 118 mg/dL (<200); Glucose 102 mg/dL (74-99); HDL Cholesterol 47 mg/dL (40-60); LDL Cholesterol,Calculated 57 mg/dL (0-99); Lithium 0.6 mmol/L; Triglycerides 68 mg/dL (<150)
[2018-01-13 11:49] LABS: T4, Free (Free Thyroxine) 0.76 ng/dL (0.78-2.19)
[2018-01-13 21:09] LABS: Hemoglobin A1C 5.5 % (4.0-6.0)
== END | disposition home or self-care (01) ==
LOC: LABWHC1 09:04
PROVIDERS: ATTEND Psychiatry & Neurology Psychiatry
DX: Z51.81 Encounter for therapeutic drug level monitoring (principal); Z79.899 Other long term (current) drug therapy
CPT/HCPCS: 36415; 80061; 80178; 82565; 82947; 83036; 84439; 84443; 84520

== ENCOUNTER → 2018-01-29 | Outpatient (CLI) | payer OTHER ==
--- NOTE | 2018-01-30 11:35 | MR ---
EXAMINATION TYPE: MR lumbar wo con DATE OF EXAM: 01/29/2018 COMPARISON: NONE HISTORY: Pain TECHNIQUE: T1 and T2 axial and sagittal images of the lumbar spine are submitted. FINDINGS: There is no abnormal signal seen within the visualized spinal cord or paraspinal soft tissu es. Heterogeneous marrow signal may been the basis of reconversion or osteopenia. At L1-2 there is severe degenerative disc disease with facet arthropathy. Circumferential disc bulgin g. No Canal stenosis. Mild bilateral foraminal encroachment. At L2-3 there is severe degenerative disc disease with 2 mm retrolisthesis and posterior spondylosis. Facet arthropathy and ligamentum flavum hypertrophy. Mild to moderate left foraminal encroachment an d mild right foraminal encroachment. No Canal stenosis. At L3-4 there is severe degenerative disc disease with diffuse disc bulging, ligamentum flavum hypert rophy and facet arthropathy. There is moderate canal stenosis and bilateral foraminal encroachment. T here is a 2 mm retrolisthesis of C3 relative to C4. At L4-5 there is severe facet arthropathy and ligamentum flavum. There is central left paracentral br oad-based disc bulging. Moderate bilateral foraminal encroachment greater on the right. There is mild to moderate central stenosis. At L5-S1 there is severe degenerative disc disease with facet arthropathy and mild bilateral foramina l encroachment. No central stenosis. 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 IMPRESSION: 1. Severe degenerative disc disease at all levels with hypertrophic changes and facet arthropathy res ult in multilevel canal stenosis and foraminal encroachment as discussed above. EXAMINATION TYPE: MR cervical spine wo con DATE OF EXAM: 01/29/2018 COMPARISON: NONE HISTORY: Pain TECHNIQUE: T1 sagittal and coronal, T2 sagittal, and gradient echo axial views of the cervical spine are submitted. FINDINGS: The cranial cervical junction is preserved. There is no abnormal signal seen within the sp inal cord or paraspinal soft tissues. At C2-3 there is there is a 3 mm anterolisthesis of C2 on C3. Broad-based posterior spondylosis and d isc bulging results in mild central stenosis and moderate to severe bilateral foraminal encroachment with uncovertebral joint hypertrophy and facet arthropathy. At C3-4 there is severe degenerative disc disease with facet arthropathy. Moderate right foraminal an d severe left foraminal encroachment. Hypertrophic change of the facets and uncovertebral joints note d. There is borderline central stenosis. At C4-5 there is severe degenerative disc disease with broad-based central and left paracentral disc protrusion resulting in moderate compression of thecal sac and encroaching upon the anterior margin t he spinal cord. There is facet arthropathy and moderate bilateral foraminal encroachment. At C5-6 there is severe degenerative disc disease with broad-based central and right paracentral disc protrusion. Uncovertebral joint hypertrophy noted greater on the right. There is mild central stenos is and moderate bilateral foraminal encroachment. At C6-7 there is broad-based central disc bulging with posterior spondylosis and uncovertebral joint hypertrophy. No Canal stenosis. Facet arthropathy and moderate bilateral foraminal encroachment. At C7-T1 there is sixth severe degenerative disc disease but no canal stenosis, foraminal encroachmen t or disc herniation. Sagittal disc bulging noted in the upper thoracic spine at T2-3 and T3-T4. IMPRESSION: 1. Severe multilevel degenerative disc disease with a 3 mm anterolisthesis of C2 relative to C3. 2. Multilevel hypertrophic changes and severe degenerative disc disease with disc bulging resulting i n canal stenosis at C2-C3, C3-C4, C4-C5, and C5-C6. Disc protrusions particularly noted at C4-C5 whic h abuts the anterior margin the spinal cord. EXAMINATION TYPE: MR thoracic spine wo con DATE OF EXAM: 01/29/2018 COMPARISON: NONE HISTORY: Pain TECHNIQUE: Multisequence multiplanar images of the thoracic spine are submitted. FINDINGS: The T1-T2 there is degenerative disc disease. No foraminal encroachment or canal stenosis. At T2-T3 there severe degenerative disc disease and right paracentral disc bulging or small protrusio n with mild right foraminal encroachment. No Canal stenosis. At T3-T4 there is severe degenerative disc disease. Mild bilateral foraminal encroachment but no skylar l stenosis or disc herniation. At T4-T5 there is no foraminal encroachment or canal stenosis. Minimal left paracentral disc bulging. At T5-T6 there is a broad-based left paracentral disc protrusion. No spinal cord contact. Severe dege nerative disc disease. There is effacement of the thecal sac. At T6-T7 there is central and left paracentral disc bulging with no canal stenosis or foraminal encro achment. At T7-T8 there severe degenerative disc disease and broad-based central disc protrusion resulting in mild central stenosis. No spinal cord contact. Neural foramina remain patent At T8-T9 there is severe degenerative disc disease. Neural foramina are patent. Broad-based left para central disc bulging or small protrusion noted. No definite spinal cord contact. At T9-T10 there is degenerative disc disease. No canal stenosis or focal herniation. Neural foramina are patent. At T10-T11 there severe degenerative disc disease. Central disc bulging. Bulging greater laterally an d paracentrally to the right with mild to moderate bilateral foraminal encroachment greater on the ri ght. At T11-T12 no disc herniation or canal stenosis. There is facet arthropathy. No foraminal encroachmen t. The axial images are limited for assessment spinal cord abnormal signal due to motion with particular limitation involving the mid and lower thoracic spine. Grossly on the sagittal images no abnormal si gnal is seen. IMPRESSION: 1. There is multilevel severe degenerative disc disease with scoliotic curvature and multilevel disc bulging or protrusions result in multilevel foraminal encroachment as discussed above.
== END | disposition home or self-care (01) ==
LOC: RADMRIMAIN 19:25
DX: M19.90 Unspecified osteoarthritis, unspecified site (principal); M51.36 Other intervertebral disc degeneration, lumbar region; M47.9 Spondylosis, unspecified; M48.061 Spinal stenosis, lumbar region without neurogenic claudication; M50.31 Other cervical disc degeneration, high cervical region; M51.34 Other intervertebral disc degeneration, thoracic region
CPT/HCPCS: 72141; 72146; 72148

== ENCOUNTER → 2018-01-30 | Outpatient (CLI) | payer OTHER ==
--- NOTE | 2018-01-30 20:38 | MR ---
EXAMINATION TYPE: MR knee RT wo con DATE OF EXAM: 01/30/2018 8:10 PM COMPARISON: NONE HISTORY: Knee pain with Swelling and Limited ROM TECHNIQUE: Multiplanar, multisequence imaging of the right knee is performed. FINDINGS: MEDIAL MENISCUS: Anterior and posterior horns are intact without tear. Myxoid degeneration posterior horn medial meniscus. LATERAL MENISCUS: Complex tear body and posterior horn lateral meniscus. Bucket-handle component is d ifficult to exclude. CRUCIATE LIGAMENTS: Chronic rupture of the ACL. PCL is intact. COLLATERAL LIGAMENTS: The medial collateral ligament appears intact. Chronic tear femoral component l ateral collateral ligament. EXTENSOR MECHANISM: Visualized quadriceps and patellar tendons are intact. EFFUSION: No evidence for joint effusion. POPLITEAL CYST: Small Gilbert's cyst noted. Less than 1 cm. TRICOMPARTMENT SPACES: Severe narrowing medial tibiofemoral joint space and patellofemoral joint spac e. Patella april. Instability about the knee noted with widening of the lateral tibiofemoral joint sp dianna. CARTILAGE: Cartilaginous thinning throughout with subchondral sclerosis and bone marrow edema. Small cartilaginous defects noted femoral condyle. Subchondral cyst formation. BONE MARROW SIGNAL: No focal abnormal marrow signal is appreciated: OTHER: No additional significant abnormality is appreciated. IMPRESSION: 1. Chronic rupture ACL. 2. Complex tear lateral meniscus bucket-handle component difficult to exclude. 3. Degenerative changes of osteoarthritis and knee instability. Chronic tear lateral collateral ligam ent. See above.
--- NOTE | 2018-01-30 20:47 | MR ---
EXAMINATION TYPE: MR knee LT wo con DATE OF EXAM: 01/30/2018 8:09 PM COMPARISON: NONE HISTORY: Knee pain with Swelling and Limited ROM TECHNIQUE: Multiplanar, multisequence imaging of the left knee is formed. FINDINGS: MEDIAL MENISCUS: Anterior and posterior horns are intact without tear. LATERAL MENISCUS: Complex tear lateral meniscal body and posterior horn. Anterior horn is intact. CRUCIATE LIGAMENTS: Chronic rupture of the ACL. Partial tear of the ACL near its femoral insertion. COLLATERAL LIGAMENTS: The medial collateral ligament and lateral collateral ligament complex are intact and unremarkable. EXTENSOR MECHANISM: Visualized quadriceps and patellar tendons are intact. EFFUSION: Patellar joint effusion. POPLITEAL CYST: 4.9 cm Gilbert's cyst caudal dimension. TRICOMPARTMENT SPACES: Severe tricompartmental joint space narrowing CARTILAGE: Diffuse cartilaginous thinning. Subchondral sclerosis with bone marrow edema. Subchondral cystic changes identified. OTHER: No additional significant abnormality is appreciated. IMPRESSION: 1. Chronic ACL rupture with partial tear ACL. 2. Complex tear lateral meniscus. 3. Severe changes of osteoarthritis involving all compartments of the knee. 4. Diffuse cartilaginous thinning with subchondral sclerosis and bone marrow edema. 5. Gilbert's cyst.
== END ==
LOC: RADMRIMAIN 18:25
DX: M17.0 Bilateral primary osteoarthritis of knee (principal); S83.272D Complex tear of lateral meniscus, current injury, left knee, subsequent encounter; S83.512D Sprain of anterior cruciate ligament of left knee, subsequent encounter; M71.22 Synovial cyst of popliteal space [Baker], left knee; S83.421D Sprain of lateral collateral ligament of right knee, subsequent encounter; S83.511D Sprain of anterior cruciate ligament of right knee, subsequent encounter

== ENCOUNTER 2018-02-17 12:57 | Observation (INO) | payer OTHER ==
[2018-02-17] MEDS ORDERED: SODIUM CHLORIDE 0.9% 1,000 ML IV STA (13:39)
[2018-02-17] MEDS ORDERED: KETOROLAC 30 MG/ML 1 ML VIAL IVP STA (14:06)
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
[2018-02-17 14:54] LABS: ALT 40 U/L (21-72); AST 48 U/L (17-59); Albumin 3.8 g/dL (3.5-5.0); Alkaline Phosphatase 84 U/L (38-126); Amylase 69 U/L (30-110); Anion Gap 14 mmol/L; Blood Urea Nitrogen 10 mg/dL (9-20); Calcium 9.1 mg/dL (8.4-10.2); Carbon Dioxide 17 mmol/L (22-30); Chloride 108 mmol/L (98-107); Glucose 109 mg/dL (74-99); Lipase 221 U/L (23-300); Potassium 5.6 mmol/L (3.5-5.1); Sodium 139 mmol/L (137-145); Total Protein 7.3 g/dL (6.3-8.2)
--- NOTE | 2018-02-17 15:13 | XR ---
EXAMINATION TYPE: XR tibia fibula LT DATE OF EXAM: 02/17/2018 COMPARISON: NONE HISTORY: Large anterior nonhealing wound TECHNIQUE: Two views are submitted. FINDINGS: The osseous structures are intact. The joint spaces are preserved. Diffuse soft tissue edema noted. Severe arthropathy involving the knee joint. No evidence of destructive change of the osseous struct ures. Cortical thickening along the lateral margin of the distal diaphysis of the tibia likely chroni c. IMPRESSION: 1. No acute osseous abnormality. Diffuse soft tissue edema. Correlate for cellulitis. 2. Severe knee arthropathy.
[2018-02-17 15:20] LABS: Appearance,Urine Clear (Clear); Bilirubin,Urine Negative (Negative); Blood,Urine Negative (Negative); Color,Urine Light Yellow; Glucose,Urine (UA) Negative (Negative); Ketones,Urine Negative (Negative); Leukocyte Esterase,Urine Negative (Negative); Nitrite,Urine Negative (Negative); Protein,Urine Negative (Negative); Specific Gravity,Urine 1.003 (1.001-1.035); Urobilinogen,Urine <2.0 mg/dL (<2.0)
--- NOTE | 2018-02-17 16:06 | CT ---
EXAMINATION TYPE: CT abdomen pelvis wo con DATE OF EXAM: 02/17/2018 COMPARISON: Prior CT 08/16/2017 HISTORY: Patient complains of right flank pain. CT DLP: 979.1 mGycm Automated exposure control for dose reduction was used. TECHNIQUE: Helical acquisition of images from the lung bases through the pelvis. FINDINGS: Lack of intravenous contrast could compromise sensitivity. Small umbilical hernia contains fat. LUNG BASES: Patchy bilateral densities are present, some associated air bronchograms present on the l eft, no pleural or pericardial effusion. AORTA: No significant abnormality is appreciated. LIVER/GB: Gallbladder is contracted shows a thickened wall, liver shows no mass PANCREAS: No significant abnormality is seen. SPLEEN: No change in the area of increased attenuation within the posterior spleen possibly due to ol d trauma, spleen is enlarged. ADRENALS: Right adrenal low-attenuation nodule is again seen and has not changed significantly, measu ring approximately 17 mm, left adrenal lesion is also stable and is smaller in size. KIDNEYS: No significant abnormality is seen. REPRODUCTIVE ORGANS: Prostate is enlarged and shows associated calcification URINARY BLADDER: No significant abnormality is seen. BOWEL: Some retained fecal debris along the right colon, appendix is normal. FREE AIR: No Free Air is visible. ASCITES: None visible. PELVIC ADENOPATHY: None visualized. RETROPERITONEAL ADENOPATHY: No Retroperitoneal Adenopathy visible. OSSEOUS STRUCTURES: Degenerative disc changes are present in the visualized spine, there is a spinal curvature. IMPRESSION: NO ABNORMALITY EVIDENT TO ACCOUNT FOR RIGHT FLANK PAIN. CORRELATE FOR POSSIBLE PNEUMONIA. NONCONTRAST EXAM, FOLLOW-UP INDICATED. SPLENOMEGALY. ADDITIONAL FINDINGS ABOVE.
[2018-02-17] MEDS ORDERED: MORPHINE SULFATE 4MG/4ML SYRG IVP STA (16:22)
[2018-02-17 16:46] LABS: Basophils % (A) 1 %; Eosinophils # (A) 0.5 k/uL (0-0.7); Eosinophils % (A) 8 %; HCT 38.8 % (39.0-53.0); HGB 12.5 gm/dL (13.0-17.5); Hypochromasia Slight; Lymphocytes # (A) 1.2 k/uL (1.0-4.8); Lymphocytes % (A) 17 %; MCHC 32.2 g/dL (31.0-37.0); MCV 90.1 fL (80.0-100.0); Mean Platelet Volume 8.3; Monocytes # (A) 0.8 k/uL (0-1.0); Monocytes % (A) 12 %; Neutrophils # (A) 4.3 k/uL (1.3-7.7); Neutrophils % (A) 60 %; Platelet Count 127 k/uL (150-450); RDW 14.5 % (11.5-15.5); WBC 7.1 k/uL (3.8-10.6)
[2018-02-17] MEDS ORDERED: LEVOFLOXACIN 750MG-D5W PMX 750 MG in DEXTROSE/WATER 1 150ML.BAG IVPB STA (17:17)
[2018-02-17] MEDS ORDERED: VANCOMYCIN IV PER PHARMACY 1 EACH MISC MISCELLANE PRN ×2 (17:17→18:58)
--- NOTE | 2018-02-17 17:38 | XR ---
EXAMINATION TYPE: XR chest 2V DATE OF EXAM: 02/17/2018 COMPARISON: 08/16/2017 HISTORY: COPD TECHNIQUE: Frontal and lateral views of the chest are obtained. FINDINGS: There is some patchy density at the lung bases and more on the left side. Heart size is no rmal. There are no hilar masses. There is no evidence of pleural effusion. Bony thorax is intact. The re are chest leads. IMPRESSION: There are mild infiltrates and atelectasis at the lung bases without much change compare d to old exam. No heart failure.
[2018-02-17] MEDS ORDERED: SODIUM POLYSTYRENE SULFONATE 15 GM/60 ML BOTTLE PO STA (17:52)
[2018-02-17] MEDS ORDERED: KETOROLAC 30 MG/ML 1 ML VIAL IVP PRN (17:59)
[2018-02-17] MEDS ORDERED: NALOXONE 0.4 MG/ML 1 ML VIAL IV PRN (17:59)
[2018-02-17] MEDS ORDERED: ACETAMINOPHEN TAB 325 MG TAB PO PRN (17:59)
[2018-02-17] MEDS ORDERED: IBUPROFEN 400 MG TAB PO PRN (17:59)
[2018-02-17] MEDS ORDERED: ONDANSETRON 4 MG/2 ML VIAL IVP PRN (17:59)
[2018-02-17] MEDS ORDERED: MORPHINE ORAL SOLN 10 MG/5 ML CUP PO PRN (17:59)
[2018-02-17] MEDS ORDERED: VANCOMYCIN 1,750 MG in SODIUM CHLORIDE 0.9% 250 ML IVPB STA (18:05)
[2018-02-17] MEDS ORDERED: HYDROcodone/APAP 5-325MG 1 EACH TAB PO PRN (18:53)
[2018-02-17] MEDS ORDERED: DOCUSATE 100 MG CAP PO PRN (18:53)
[2018-02-17] MEDS ORDERED: ALPRAZolam 1 MG TAB PO PRN (18:59)
[2018-02-17] MEDS ORDERED: ALBUTEROL NEBULIZED 2.5 MG/3 ML INHALATION PRN (19:05)
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
[2018-02-17] MEDS: IPRATROPIUM-ALBUTEROL 3 ML NEB INHALATION SCH (19:32)
[2018-02-17 20:13] LABS: Glucose,Whole Blood 124 mg/dL (75-99)
[2018-02-17] MEDS: SODIUM CHLORIDE 0.9% 1,000 ML IV SCH (20:31)
[2018-02-17] MEDS: OLANZapine 5 MG TAB PO SCH (20:32)
[2018-02-17] MEDS: predniSONE 20 MG TAB PO SCH (20:32)
[2018-02-17] MEDS: cloNIDine HCL 0.1 MG TAB PO SCH (22:45)
[2018-02-17] MEDS: GABAPENTIN 400 MG CAP PO SCH (22:45)
[2018-02-17] MEDS: HYDROcodone/APAP 10-325MG 1 EACH TAB PO PRN (22:50)
[2018-02-18 04:00] LABS: Hemoglobin A1C 5.7 % (4.0-6.0)
[2018-02-18] MEDS ORDERED: VANCOMYCIN 1,750 MG in SODIUM CHLORIDE 0.9% 250 ML IVPB SCH (04:00)
[2018-02-18] MEDS: SODIUM CHLORIDE 0.9% 1,000 ML IV SCH ×3 (05:19→20:45)
[2018-02-18 07:25] LABS: Glucose,Whole Blood 134 mg/dL (75-99)
[2018-02-18] MEDS ORDERED: PANTOPRAZOLE 40 MG TABLET PO SCH ×2 (07:30)
[2018-02-18 07:45] LABS: HCT 38.3 % (39.0-53.0); HGB 12.7 gm/dL (13.0-17.5); MCH 29.2 pg (25.0-35.0); MCHC 33.1 g/dL (31.0-37.0); Mean Platelet Volume 8.2; Platelet Count 139 k/uL (150-450); RBC 4.35 m/uL (4.30-5.90); RDW 14.5 % (11.5-15.5); WBC 8.1 k/uL (3.8-10.6)
[2018-02-18] MEDS: ENOXAPARIN 40 MG/0.4 ML SYRINGE SQ SCH ×2 (08:06→08:08)
[2018-02-18 08:07] LABS: Anion Gap 13 mmol/L; Blood Urea Nitrogen 13 mg/dL (9-20); Calcium 8.7 mg/dL (8.4-10.2); Carbon Dioxide 19 mmol/L (22-30); Chloride 107 mmol/L (98-107); Glucose 129 mg/dL (74-99); Magnesium 1.6 mg/dL (1.6-2.3); Phosphorus 4.5 mg/dL (2.5-4.5); Potassium 4.8 mmol/L (3.5-5.1); Sodium 139 mmol/L (137-145)
[2018-02-18] MEDS: cloNIDine HCL 0.1 MG TAB PO SCH ×3 (08:07→20:47)
[2018-02-18] MEDS: predniSONE 20 MG TAB PO SCH (08:07)
[2018-02-18] MEDS: GABAPENTIN 400 MG CAP PO SCH ×4 (08:07→20:47)
[2018-02-18] MEDS: hydrALAZINE HCL 25 MG TAB PO SCH (08:07)
[2018-02-18] MEDS: TAMSULOSIN 0.4 MG CAP.ER.24H PO SCH (08:08)
[2018-02-18] MEDS: IPRATROPIUM-ALBUTEROL 3 ML NEB INHALATION SCH ×4 (08:17→19:43)
[2018-02-18] MEDS ORDERED: PANTOPRAZOLE 40 MG/10 ML VIAL IV SCH (09:00)
[2018-02-18] MEDS: MAGNESIUM SULFATE-D5W PMX 1 GM in DEXTROSE/WATER 1 100ML.BAG IVPB SCH ×2 (11:15→12:39)
[2018-02-18 11:23] LABS: Glucose,Whole Blood 107 mg/dL (75-99)
[2018-02-18] MEDS ORDERED: diphenhydrAMINE 50 MG/ML 1 ML VIAL IVP PRN (11:25)
--- NOTE | 2018-02-18 11:34 | P.PN ---
Subjective Progress Note Date: 02/18/18 Principal diagnosis: leg pain and shortness of breath Patient is a 57-year-old male with a past medical history of hypertension, chronic left lower extremity wound, hepatitis C, neuropathy, peptic ulcer disease, and bipolar disorder who presented to the emergency department with complaints of cough, back pain and left lower extremity swelling. In the ER he underwent an extensive evaluation. On arrival he was slightly tachycardiac with a blood pressure 165/80. Initial laboratory analysis was consistent with his chronic anemia and thrombocytopenia. He was found to be slightly hyperkalemic with a potassium of 5.6. Urinalysis was negative. He underwent a chest x-ray which showed possible bibasilar infiltrates without change compared to old exam August 2017. He underwent a CT abdomen and pelvis which showed no intra-abdominal process. He was diagnosed with possible pneumonia and left lower extremity cellulitis. He was started on Levaquin and admitted to the general medical floor for further monitoring and care. With an unchaged CXR it was felt that he more likely had bronchitis and he was started on steroids and Bronchodilators. With his hx of MRSA in his wound he was also started on vanco a consult was placed for vascular surgery. By the morning of 02/18 his redness/warmth/erythema had greatly decreased around his left lower extremity wound. However he developed a rash after receiving his morning dose of vancomycin. He was noted to have multiple areas of discoid erythema but were palpable on his back, left arm, and left leg. They had been increasing. His vanco has been stopped and zyvox started. Patient seen and examined at bedside. He states that he is still having shortness of breath but this is much improved. He states that he is still struggling to cough things up. He denies any overt chest pain, nausea, vomiting , or diarrhea. He states his leg has never been this propyl before. His pain in his leg is decreased. Objective - Vital Signs Vital signs: Vital Signs Temp 97.2 F L 02/18/18 07:00 Pulse 60 02/18/18 08:27 Resp 16 02/18/18 08:17 BP 133/71 02/18/18 07:00 Pulse Ox 98 02/18/18 07:00 Intake & Output 02/17/18 02/18/18 02/18/18 18:59 06:59 18:59 Intake Total 150 Balance 150 Weight 115.212 kg Intake: Intake, IV Titration 150 Amount Sodium Chloride 0.9% 1, 150 000 ml @ 120 mls/hr IV . Q8H20M [facility] Rx#:[id number] Other: Voiding Method Toilet Toilet # Voids 1 - Exam General: non toxic, no distress, appears at stated age Derm:Left lower extremity with large wound approximately 7 cm in length with dusky appearance. Resolution of surrounding edema of the local tissues, erythema , and warmth. No purulent drainage noted. Non fluctuant. necrotic area Tip of left first and second toe. Cool left leg. dry. Nurse able to doppler pulses. Head: atraumatic, normocephalic, symmetric Eyes: EOMI, no lid lag, anicteric sclera Mouth: no lip lesion, mucus membranes moist Cardiovascular: S1S2 reg, no murmur, positive posterior tibial pulse bilateral, Lungs: Decreased breath sounds bilaterally with rhonchi , no accessory muscle use Abdominal: soft, nontender to palpation, no guarding, no appreciable organomegaly Ext: no gross muscle atrophy, no edema, no contractures Neuro: CN II-XI grossly intact, no focal neuro deficits Psych: Alert, oriented, appropriate affect - Labs CBC & Chem 7: 02/18/18 07:16 02/18/18 07:16 Labs: Abnormal Lab Results - Last 24 Hours (Table) 02/17/18 02/17/18 02/17/18 Range/Units 14:30 16:27 20:12 Hgb 12.5 L (13.0-17.5) gm/dL Hct 38.8 L (39.0-53.0) % Plt Count 127 L (150-450) k/uL Potassium 5.6 H (3.5-5.1) mmol/L Chloride 108 H (98-107) mmol/L Carbon Dioxide 17 L (22-30) mmol/L Glucose 109 H (74-99) mg/dL POC Glucose (mg/dL) 124 H (75-99) mg/dL 02/18/18 02/18/18 02/18/18 Range/Units 07:16 07:16 07:23 Hgb 12.7 L (13.0-17.5) gm/dL Hct 38.3 L (39.0-53.0) % Plt Count 139 L (150-450) k/uL Potassium (3.5-5.1) mmol/L Chloride (98-107) mmol/L Carbon Dioxide 19 L (22-30) mmol/L Glucose 129 H (74-99) mg/dL POC Glucose (mg/dL) 134 H (75-99) mg/dL Microbiology - Last 24 Hours (Table) 02/17/18 14:47 Gram Stain - Preliminary Leg - Left Wound Culture - Preliminary Assessment and Plan Assessment: Left lower extremity chronic wound infection with surrounding cellulitis -Linezolid with history of MRSA, also has a history of Pseudomonas sensitive to Levaquin and this will be continued -lower extremity arterial Doppler pending -Vascular surgery consult pending -Pain control, continue neurontin -Elevate leg -Will not start local wound care until seen by vascular surgery as to not obscure appearance of lesion - dopplerable pulses per nursing Discoid skin lesion, possible reaction to vanco - continue prednisone - stop vanco and switch to linezolid - consult ID - pr benadryl Acute bronchitis with probable acute COPD -Prednisone 40 mg daily -levaquin -Scheduled and As needed bronchodilators - flutter valve Hypertension, slightly elevated on arrival -Likely secondary to pain -continue catapress, hydralazine - follow BP Chronic anemia and thrombocytopenia - at baseline of 12.5-13 and 130s - follow intermittent CBC Peptic ulcer disease - PPI Hx of Hep C - not currently on treatment - follow-up as outpatient Bipolar disorder - conitnue home xanax and zyprexa left message for Dr. Rivera to call back, currently in OR. DVT prophylaxis: Lovenox Discussed with: ARIE Reilly Anticipated discharge: 3-[address]: home with home health A total of 35 minutes was spent on the care of this complex patient more than 50 % of the time was spent in counseling and care coordination.
[2018-02-18] MEDS: MORPHINE ORAL SOLN 10 MG/5 ML CUP PO PRN ×3 (12:16→21:09)
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
[2018-02-18 17:31] LABS: Glucose,Whole Blood 105 mg/dL (75-99)
[2018-02-18] MEDS ORDERED: LINEZOLID 600 MG in DEXTROSE/WATER 1 300ML.BAG IVPB SCH (18:00)
[2018-02-18 20:27] LABS: Glucose,Whole Blood 130 mg/dL (75-99)
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
[2018-02-18] MEDS: DOXYCYCLINE 50 MG CAP PO SCH (20:46)
[2018-02-18] MEDS: OLANZapine 5 MG TAB PO SCH (20:48)
[2018-02-18 22:54] VITALS: RESP 16
[2018-02-19] MEDS: MORPHINE ORAL SOLN 10 MG/5 ML CUP PO PRN ×2 (01:38→05:45)
[2018-02-19] MEDS: SODIUM CHLORIDE 0.9% 1,000 ML IV SCH (05:44)
[2018-02-19 07:13] LABS: Glucose,Whole Blood 105 mg/dL (75-99)
[2018-02-19] MEDS: IPRATROPIUM-ALBUTEROL 3 ML NEB INHALATION SCH ×2 (07:27→11:14)
[2018-02-19 07:47] VITALS: BP 166/93; TEMP 97
[2018-02-19] MEDS: hydrALAZINE HCL 25 MG TAB PO SCH (08:29)
[2018-02-19] MEDS: DOXYCYCLINE 50 MG CAP PO SCH (08:29)
[2018-02-19] MEDS: cloNIDine HCL 0.1 MG TAB PO SCH (08:29)
[2018-02-19] MEDS: GABAPENTIN 400 MG CAP PO SCH ×2 (08:29→13:51)
[2018-02-19] MEDS: predniSONE 20 MG TAB PO SCH (08:30)
[2018-02-19] MEDS: TAMSULOSIN 0.4 MG CAP.ER.24H PO SCH (08:30)
[2018-02-19] MEDS: ENOXAPARIN 40 MG/0.4 ML SYRINGE SQ SCH (08:30)
[2018-02-19 08:32] LABS: HCT 38.1 % (39.0-53.0); HGB 12.2 gm/dL (13.0-17.5); MCH 28.8 pg (25.0-35.0); MCHC 32.2 g/dL (31.0-37.0); MCV 89.5 fL (80.0-100.0); Platelet Count 144 k/uL (150-450); RBC 4.25 m/uL (4.30-5.90); RDW 14.8 % (11.5-15.5); WBC 8.6 k/uL (3.8-10.6)
[2018-02-19 09:05] LABS: Anion Gap 13 mmol/L; Blood Urea Nitrogen 18 mg/dL (9-20); Calcium 8.8 mg/dL (8.4-10.2); Carbon Dioxide 20 mmol/L (22-30); Chloride 108 mmol/L (98-107); Glucose 109 mg/dL (74-99); Magnesium 1.7 mg/dL (1.6-2.3); Potassium 4.7 mmol/L (3.5-5.1); Sodium 141 mmol/L (137-145)
[2018-02-19] MEDS: HYDROcodone/APAP 10-325MG 1 EACH TAB PO PRN (10:34)
[2018-02-19] MEDS ORDERED: VANCOMYCIN TROUGH DUE 1 EACH MISC MISCELLANE ONE (11:00)
[2018-02-19 11:21] VITALS: PULSE 60
[2018-02-19 12:04] LABS: Glucose,Whole Blood 96 mg/dL (75-99)
--- NOTE | 2018-02-19 12:54 | P.DS ---
Providers Date of admission: 02/17/18 17:57 Expected date of discharge: 02/19/18 Attending physician: Eliza Veronica DO Consults: 02/17/18 18:55 Consult Physician Routine Consulting Provider: Gurdeep Rivera Consult Reason/Comments: PAD, Chronic Left LE wound now with infection and necrotic tip left 2nd toe Do you want consulting provider notified?: Yes 02/18/18 11:24 Consult Physician Routine Consulting Provider: Yuri Smith Consult Reason/Comments: Reaction to vanco hx of MRSA LLE cellulits Do you want consulting provider notified?: Yes Primary care physician: Luis Manuel Medina DO Hospital Course: Patient is a 57-year-old male with a past medical history of hypertension, chronic left lower extremity wound, hepatitis C, neuropathy, peptic ulcer disease, and bipolar disorder who presented to the emergency department with complaints of cough, back pain and left lower extremity swelling. In the ER he underwent an extensive evaluation. On arrival he was slightly tachycardiac with a blood pressure 165/80. Initial laboratory analysis was consistent with his chronic anemia and thrombocytopenia. He was found to be slightly hyperkalemic with a potassium of 5.6. Urinalysis was negative. He underwent a chest x-ray which showed possible bibasilar infiltrates without change compared to old exam August 2017. He underwent a CT abdomen and pelvis which showed no intra-abdominal process. He was diagnosed with possible pneumonia and left lower extremity cellulitis. He was started on Levaquin and admitted to the general medical floor for further monitoring and care. With an unchaged CXR it was felt that he more likely had bronchitis and he was started on steroids and Bronchodilators. With his hx of MRSA in his wound he was also started on vanco a consult was placed for vascular surgery. By the morning of 02/18 his redness/warmth/erythema had greatly decreased around his left lower extremity wound. However he developed a rash after receiving his morning dose of vancomycin. He was noted to have multiple areas of discoid erythema but were palpable on his back, left arm, and left leg. They had been increasing in number. His vanco has been stopped and zyvox started, this rash resolved. He was seen by vascular surgery who felt that he had good flow to the left lower extremity and no intervention was needed. he was also seen by Dr. Smith of infectious disease and his antibiotics were de-escalated to doxycycline withhis MRSA being sensitive to this in the past. Morning of 02/19 the patient was feeling greatly improved and felt as though he could manage his pain and complete his antibiotics at home. We did review his outpatient MRI of the cervical, thoracic, lumbar spine as well as his MRIs of the right and left knee. Has been recommendations for him to follow-up with Dr. Reyes due to severe disc disease in his cervical spine with minimal effacement of the spinal canal at C4-C5. Also placed a referral to Dr. Andrews Moreno cough as his right knee MRI shows a chronic ACL tear plus a meniscal tear leading to knee instability. He was seen by physical therapy and a prescription was written for a 4 pronged cane. He will see his primary care All questions were answered. Patient seen and examined at bedside. Pain is much improved and is back to his chronic pain. No shortness of breath. No wheezing. Cough has resolved. No nausea or diarrhea. Reviewed MRIs as above the patient was provided with a copy of MRI reports. Vital signs reviewed and stable. General: non toxic, no distress, appears at stated age Derm: Large left pretibial wound, no drainage, no warmth, no erythema, dusky appearance. Blackened tip of left second toe. Areas of erythema on legs and right hand have resolved. Head: atraumatic, normocephalic, symmetric Eyes: EOMI, no lid lag, anicteric sclera Mouth: no lip lesion, mucus membranes moist Cardiovascular: S1S2 reg, no murmur, positive posterior tibial pulse bilateral, Lungs: CTA bilateral, no rhonchi, no rales , no accessory muscle use Abdominal: soft, nontender to palpation, no guarding, no appreciable organomegaly Ext: no gross muscle atrophy, no edema, no contractures Neuro: CN II-XI grossly intact, no focal neuro deficits Psych: Alert, oriented, appropriate affect A total of 40 minutes of time were spent preparing this complex discharge summary . Pertinent Studies: left tibia/fibula x-ray-no acute osseous abnormality, severe knee arthropathy, diffuse soft tissue edema CT abdomen and pelvis-correlate for possible pneumonia, no abnormality, noncontrasted exam, splenomegaly lower extremity ultrasound-pending at time of discharge Patient Condition at Discharge: Stable Plan - Discharge Summary Discharge Rx Participant: No New Discharge Prescriptions: New Doxycycline [Vibramycin] 100 mg PO BID #10 cap Continue cloNIDine HCL [Catapres] 0.1 mg PO TID #45 tab Nicotine 14Mg/24Hr Patch [Habitrol] 1 patch TRANSDERM DAILY #14 patch OLANZapine [ZyPREXA] 15 mg PO HS #14 tablet Pantoprazole [Protonix] 40 mg PO AC-BRKFST #14 tablet. ALPRAZolam [Xanax] 1 mg PO QID PRN PRN Reason: Anxiety Mupirocin 2% Oint [Bactroban 2% Oint] 1 applic TOPICAL Q48H hydrALAZINE HCL [Apresoline] 75 mg PO DAILY Tamsulosin HCl [Flomax] 0.4 mg PO DAILY Gabapentin 800 mg PO QID Hydrocodone/Acetaminophen [[place] 10-325] 1 tab PO QID PRN PRN Reason: Pain Discontinued Levofloxacin [Levaquin] 500 mg PO DAILY Discharge Medication List Nicotine 14Mg/24Hr Patch [Habitrol] 1 patch TRANSDERM DAILY #14 patch 12/25/17 [ Rx] OLANZapine [ZyPREXA] 15 mg PO HS #14 tablet 12/25/17 [Rx] Pantoprazole [Protonix] 40 mg PO AC-BRKFST #14 tablet. 12/25/17 [Rx] cloNIDine HCL [Catapres] 0.1 mg PO TID #45 tab 12/25/17 [Rx] ALPRAZolam [Xanax] 1 mg PO QID PRN 02/17/18 [History] Gabapentin 800 mg PO QID 02/17/18 [History] Hydrocodone/Acetaminophen [[place] 10-325] 1 tab PO QID PRN 02/17/18 [History] Mupirocin 2% Oint [Bactroban 2% Oint] 1 applic TOPICAL Q48H 02/17/18 [History] Tamsulosin HCl [Flomax] 0.4 mg PO DAILY 02/17/18 [History] hydrALAZINE HCL [Apresoline] 75 mg PO DAILY 02/17/18 [History] Doxycycline [Vibramycin] 100 mg PO BID #10 cap 02/19/18 [Rx] Follow up Appointment(s)/Referral(s): [facility], [NON-STAFF] - 1 Week Luis Manuel Medina DO [Primary Care Provider] - 1-2 days (not able to get through to office .please call and schedule own appt) Duglas Segal DO [Doctor of Osteopathic Medicine] - 4 Weeks (please have patient call [facility] and schedule own appt.they need information before scheduling.) Patient Instructions/Handouts: Doxycycline (By mouth), Cellulitis (DC), Hyperkalemia (DC), Bradycardia (DC), Pneumonia (DC) Activity/Diet/Wound Care/Special Instructions: Regular diet Activity as tolerated Please complete antibiotics Wound care Clinic for follow-up in 1-2 weeks Discharge Disposition: HOME SELF-CARE Pending Studies Pending Results: final results left lower extremity ultrasound
--- NOTE | 2018-02-26 10:24 | P.ARTDOP ---
Arterial Doppler LOWER EXTREMITY ARTERIAL DOPPLER: DATE OF SERVICE: 02/18/2018 ulcer anterior left lower leg Reason for study: Anterior left lower leg ulcer. Doppler waveforms: Multiphasic bilaterally throughout. Pulse volume recording: Normal configuration. Pressure gradients: [ none ]. Ankle-brachial indices: [ Greater than 1 on the right. Not done on the left due to ulceration.]. Toe pressures: [] on the right, [] on the left Impression: [ Normal study with limitations. Suspect normal circulatory status. ].
== END 2018-02-19 15:23 | disposition home or self-care (01) ==
LOC: EC 12:57 → 5MS5E 17:57 → INTOOBSV 17:57 → 5MS5E 02-18 14:50 → UNDODISIN 02-19 15:23
PROVIDERS: ADMIT Internal Medicine; ATTEND Internal Medicine
DX: L03.116 Cellulitis of left lower limb (principal); L97.829 Non-pressure chronic ulcer of other part of left lower leg with unspecified severity; D69.6 Thrombocytopenia, unspecified; J44.0 Chronic obstructive pulmonary disease with (acute) lower respiratory infection; J20.9 Acute bronchitis, unspecified; E87.5 Hyperkalemia; E86.0 Dehydration; M54.5 Low back pain; R00.1 Bradycardia, unspecified; D64.9 Anemia, unspecified; L30.9 Dermatitis, unspecified; F17.210 Nicotine dependence, cigarettes, uncomplicated; F31.9 Bipolar disorder, unspecified; F41.9 Anxiety disorder, unspecified; G89.29 Other chronic pain; I44.0 Atrioventricular block, first degree; I10 Essential (primary) hypertension; K27.9 Peptic ulcer, site unspecified, unspecified as acute or chronic, without hemorrhage or perforation; M23.8X1 Other internal derangements of right knee; M23.206 Derangement of unspecified meniscus due to old tear or injury, right knee; B19.20 Unspecified viral hepatitis C without hepatic coma; M50.30 Other cervical disc degeneration, unspecified cervical region; L27.0 Generalized skin eruption due to drugs and medicaments taken internally; T36.8X5A Adverse effect of other systemic antibiotics, initial encounter; Y92.239 Unspecified place in hospital as the place of occurrence of the external cause; Z79.899 Other long term (current) drug therapy; Z86.14 Personal history of Methicillin resistant Staphylococcus aureus infection; Z82.49 Family history of ischemic heart disease and other diseases of the circulatory system
CPT/HCPCS: 96376; 96366 ×3; 96367 ×2; 96361; 96365; 96375; 99285; 36415; 94640 ×4; 94667; 93005; 97116; 97162; 80053; 80048 ×2; 82150; 83605; 83690; 83735 ×2; 84100; 84484; 85025; 85027 ×2; 81003; 87040; 87070; 87205; 87077; 87186; 83036; 73590; 71046; 93923; 74176; G0378 ×3; J3370 ×2; J2020; J1885 ×2; J1956; J3475; J7512 ×3; J2270

== ENCOUNTER 2018-04-08 16:35 | Observation (INO) | payer OTHER ==
[2018-04-08] MEDS ORDERED: SODIUM CHLORIDE 0.9% 1,000 ML IV STA ×2 (17:45)
[2018-04-08] MEDS ORDERED: methylPREDNISolone SOD SUCCI 125 MG/2 ML VIAL IV STA (17:45)
[2018-04-08] MEDS ORDERED: IPRATROPIUM-ALBUTEROL 3 ML NEB INHALATION STA (17:45)
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
[2018-04-08 18:48] LABS: Basophils % (A) 1 %; Eosinophils # (A) 0.3 k/uL (0-0.7); Eosinophils % (A) 5 %; HCT 36.1 % (39.0-53.0); Lymphocytes # (A) 1.2 k/uL (1.0-4.8); Lymphocytes % (A) 21 %; MCH 28.7 pg (25.0-35.0); MCHC 33.1 g/dL (31.0-37.0); MCV 86.6 fL (80.0-100.0); Mean Platelet Volume 8.5; Monocytes # (A) 0.6 k/uL (0-1.0); Monocytes % (A) 12 %; Neutrophils # (A) 3.2 k/uL (1.3-7.7); Neutrophils % (A) 58 %; Platelet Count 120 k/uL (150-450); RBC 4.17 m/uL (4.30-5.90); RDW 15.1 % (11.5-15.5); WBC 5.5 k/uL (3.8-10.6)
[2018-04-08 18:53] LABS: ALT 52 U/L (21-72); AST 45 U/L (17-59); Albumin 3.7 g/dL (3.5-5.0); Alkaline Phosphatase 80 U/L (38-126); Anion Gap 12 mmol/L; Blood Urea Nitrogen 14 mg/dL (9-20); Calcium 8.7 mg/dL (8.4-10.2); Carbon Dioxide 21 mmol/L (22-30); Chloride 104 mmol/L (98-107); Glucose 80 mg/dL (74-99); INR 1.1 (<1.2); Magnesium 1.9 mg/dL (1.6-2.3); Partial Thromboplastin Time 25.8 sec (22.0-30.0); Potassium 3.8 mmol/L (3.5-5.1); Prothrombin Time 10.9 sec (9.0-12.0); Sodium 137 mmol/L (137-145); Total Bilirubin 1.1 mg/dL (0.2-1.3); Total Protein 6.6 g/dL (6.3-8.2)
[2018-04-08 19:02] LABS: Creatine Kinase 262 U/L (55-170)
[2018-04-08 19:15] LABS: Creatine Kinase MB 2.3 ng/mL (0.0-2.4); Troponin I <0.012 ng/mL (0.000-0.034)
--- NOTE | 2018-04-08 19:25 | XR ---
EXAMINATION TYPE: XR chest 2V DATE OF EXAM: 04/08/2018 COMPARISON: Prior chest 02/17/2018 HISTORY: Difficulty breathing TECHNIQUE: Frontal and lateral views of the chest are obtained. FINDINGS: There is no pleural effusion or pneumothorax seen. The cardiac silhouette size is within normal limits. The osseous structures are intact. Patchy basilar density is noted in the left lower lobe. IMPRESSION: Findings at the left lung base may reflect atelectasis or scarring rather than pneumonia , correlate.
--- NOTE | 2018-04-08 19:26 | XR ---
Bilateral knees HISTORY: Trauma and pain 3 views of each knee are submitted. Correlation to left leg for 2017 Osteoarthritic changes are present. Alignment and bone mineralization are stable. There is soft tissu e swelling present. There may be joint effusions. IMPRESSION: Marked osteoarthritis, bilateral joint effusions.
[2018-04-08] MEDS ORDERED: IPRATROPIUM-ALBUTEROL 3 ML NEB INHALATION PRN (20:52)
[2018-04-08] MEDS ORDERED: LEVOFLOXACIN 750MG-D5W PMX 750 MG in DEXTROSE/WATER 1 150ML.BAG IVPB STA (20:54)
[2018-04-08] MEDS ORDERED: NALOXONE 0.4 MG/ML 1 ML VIAL IV PRN (20:55)
[2018-04-08] MEDS ORDERED: ONDANSETRON 4 MG/2 ML VIAL IVP PRN (20:55)
[2018-04-08] MEDS ORDERED: ACETAMINOPHEN TAB 325 MG TAB PO PRN (20:55)
[2018-04-08] MEDS ORDERED: IBUPROFEN 400 MG TAB PO PRN (20:55)
[2018-04-08] MEDS: MORPHINE SULFATE 4 MG/ML SYRINGE IV PRN (21:49)
[2018-04-08] MEDS: guaiFENesin 600 MG TABLET.ER PO SCH (22:41)
[2018-04-08] MEDS ORDERED: MUPIROCIN 2% OINT 22 GM TUBE TOPICAL SCH (23:45)
[2018-04-08] MEDS ORDERED: HYDROcodone/APAP 10-325MG 1 EACH TAB PO PRN (23:46)
[2018-04-08] MEDS ORDERED: ALPRAZolam 1 MG TAB PO PRN (23:46)
[2018-04-09] MEDS: methylPREDNISolone SOD SUCCI 125 MG/2 ML VIAL IV SCH ×5 (00:31→23:24)
[2018-04-09] MEDS: MORPHINE SULFATE 4 MG/ML SYRINGE IV PRN (02:26)
[2018-04-09] MEDS: KETOROLAC 30 MG/ML 1 ML VIAL IVP PRN ×2 (02:26→08:46)
[2018-04-09 05:57] VITALS: RESP 16
[2018-04-09 07:28] LABS: Glucose,Whole Blood 135 mg/dL (75-99)
[2018-04-09] MEDS ORDERED: PANTOPRAZOLE 40 MG TABLET PO SCH (07:30)
[2018-04-09] MEDS: GABAPENTIN 400 MG CAP PO SCH ×4 (07:55→21:13)
[2018-04-09] MEDS: DOXYCYCLINE 50 MG CAP PO SCH ×2 (07:55→20:20)
[2018-04-09] MEDS: cloNIDine HCL 0.1 MG TAB PO SCH ×3 (07:55→21:13)
[2018-04-09] MEDS: TAMSULOSIN 0.4 MG CAP.ER.24H PO SCH (07:55)
[2018-04-09] MEDS: guaiFENesin 600 MG TABLET.ER PO SCH ×2 (07:55→20:20)
[2018-04-09] MEDS: hydrALAZINE HCL 25 MG TAB PO SCH (07:56)
[2018-04-09] MEDS ORDERED: LOPERAMIDE 2 MG CAP PO PRN (08:32)
[2018-04-09] MEDS ORDERED: PANTOPRAZOLE 40 MG/10 ML VIAL IV SCH (09:00)
[2018-04-09] MEDS: MORPHINE SULFATE 2 MG/ML SYRINGE IV PRN ×3 (10:05→21:13)
[2018-04-09 12:14] LABS: Glucose,Whole Blood 146 mg/dL (75-99)
[2018-04-09 12:31] LABS: Glucose,Whole Blood 138 mg/dL (75-99)
[2018-04-09 15:34] VITALS: BMI 31.7
[2018-04-09 17:15] LABS: Glucose,Whole Blood 115 mg/dL (75-99)
[2018-04-09 19:38] LABS: Hemoglobin A1C 5.6 % (4.0-6.0)
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
[2018-04-09] MEDS ORDERED: OLANZapine 5 MG TAB PO SCH (21:00)
[2018-04-10] MEDS ORDERED: MORPHINE SULFATE 2 MG/ML SYRINGE ONE (05:00)
[2018-04-10] MEDS ORDERED: methylPREDNISolone SOD SUCCI 125 MG/2 ML VIAL ONE (05:00)
[2018-04-10] MEDS ORDERED: PANTOPRAZOLE 40 MG TABLET PO SCH (07:30)
[2018-04-10] MEDS: methylPREDNISolone SOD SUCCI 125 MG/2 ML VIAL IV SCH ×2 (07:34→11:16)
[2018-04-10] MEDS: GABAPENTIN 400 MG CAP PO SCH ×2 (07:37→12:04)
[2018-04-10] MEDS: TAMSULOSIN 0.4 MG CAP.ER.24H PO SCH (07:37)
[2018-04-10] MEDS: guaiFENesin 600 MG TABLET.ER PO SCH (07:37)
[2018-04-10] MEDS: hydrALAZINE HCL 25 MG TAB PO SCH (07:38)
[2018-04-10] MEDS: cloNIDine HCL 0.1 MG TAB PO SCH (07:38)
[2018-04-10 07:40] LABS: Glucose,Whole Blood 128 mg/dL (75-99)
[2018-04-10] MEDS: DOXYCYCLINE 50 MG CAP PO SCH (08:21)
[2018-04-10] MEDS: MORPHINE ORAL SOLN 10 MG/5 ML CUP PO PRN ×2 (11:17→15:34)
[2018-04-10 12:04] LABS: Glucose,Whole Blood 170 mg/dL (75-99)
[2018-04-10 15:49] VITALS: BP 167/89; PULSE 57; TEMP 97.7
--- NOTE | 2018-04-10 18:44 | DS ---
DISCHARGE SUMMARY CHIEF COMPLAINT: Exacerbation of COPD. HISTORY OF PRESENT ILLNESS AND PHYSICAL EXAM: Details of this man's history and physical can be found in the initial workup. LABORATORY STUDIES: While he was in a hospital, he had laboratory studies details which can be found in the laboratory section of the chart. COURSE IN HOSPITAL: After admission, he was placed in bedrest, started on intravenous fluids and he had inhaled and IV steroids with updrafts and he continued to improve. He had some discomfort in the knee that he fell on, but otherwise was doing well and it was felt that he could be discharged on the . He will go home on his usual activity, diet and medication and will be seen in the office in several days. FINAL DIAGNOSES: 1. Exacerbation of chronic obstructive pulmonary disease. 2. Contusion of the right knee. 3. Old injury to the left lower leg. OPERATIONS: None. CONSULTATIONS: None. He is improved. MMKEIL / SHARRI: [id number] /
--- NOTE | 2018-04-21 08:01 | CDI ---
Documentation Clarification Form Date: 04/21/2018 From: Katelyn Sy Janna Fierroanupkatie, Director [facility] Hours-8:30 am & 5 pm M-F Admit Date: 04/08/2018 8:52:00 PM Patient Name: Juan Francisco Matthews Visit Number: [id number] Discharge Date: 04/08/2018 ATTENTION: The Clinical Documentation Specialists (CDI) and [facility] Coding Staff appreciate your assistance in clarifying documentation. Please respond to the clarification below the line at the bottom and electronically sign. The CDI & [facility] Coding staff will review the response and follow-up if needed. Please note: Queries are made part of the Legal Health Record. If you have any questions, please contact the author of this message via ITS. Dr. Neftali Jimenes: Pneumonia was documented in ER notes and as possible pneumonia in H and P and not carried to [facility]. Please specify if pneumonia resolved or was ruled out. History/Risk Factors: (include outpatient tx?/home O2) Clinical Indicators: COPD WBC/Left shift: 5.5 X-ray: Patchy basilar density LLL Lung/Breathing assessment Wheezes, rhonci, respiratory distress, rales, stridor Treatment: Antibiotics Levaquin O2 Breathing Tx: IV steroids with updrafts In order to capture the severity of condition, please clarify if the condition signifies and you are treating for: Bacterial Pneumonia, specify causal organism (if known) Gram Negative Pneumonia Due to Strep Due to Staph Due to E. Coli Other bacteria (please specify) Viral Pneumonia, specify casual organism (if known) Ventilator Associated Pneumonia Healthcare Acquired Pneumonia/Pneumonia, unspecified Other, please specify Unable to determine MTDD
--- NOTE | 2018-04-21 17:12 | MISC ---
MISCELLANOUS REPORT QUERY: Type of pneumonia? Unable to determine. MMODL / IJN: [id number] /
== END 2018-04-10 16:08 | disposition home or self-care (01) ==
LOC: EC 16:35 → INTOOBSV 20:52 → 4MS4W 20:52 → UNDODISIN 04-10 16:08
PROVIDERS: ADMIT Family Medicine; ATTEND Family Medicine
DX: J44.1 Chronic obstructive pulmonary disease with (acute) exacerbation (principal); S80.01XA Contusion of right knee, initial encounter; Z88.2 Allergy status to sulfonamides; F17.210 Nicotine dependence, cigarettes, uncomplicated; R19.7 Diarrhea, unspecified; Z79.899 Other long term (current) drug therapy; I10 Essential (primary) hypertension; Z86.19 Personal history of other infectious and parasitic diseases; Z87.11 Personal history of peptic ulcer disease; Z86.14 Personal history of Methicillin resistant Staphylococcus aureus infection; D64.9 Anemia, unspecified; D69.6 Thrombocytopenia, unspecified; R00.1 Bradycardia, unspecified; F31.9 Bipolar disorder, unspecified; F41.9 Anxiety disorder, unspecified; Z82.49 Family history of ischemic heart disease and other diseases of the circulatory system; M25.462 Effusion, left knee; M25.461 Effusion, right knee; R09.81 Nasal congestion; W19.XXXA Unspecified fall, initial encounter; Z87.01 Personal history of pneumonia (recurrent); M17.0 Bilateral primary osteoarthritis of knee
CPT/HCPCS: 96376 ×2; 96361 ×3; 96375 ×3; 96365; 99285; 36415; 94640 ×2; 93005; 83880; 80053; 82550; 82553; 83605; 83735; 84484; 85025; 85610; 85730; 87040; 83036; 73562; 71046; G0378 ×3; J2270 ×4; J2930 ×3; J1885; J1956; C9113

== ENCOUNTER 2018-05-22 16:03 | Inpatient (IN) | payer OTHER ==
[2018-05-22] MEDS ORDERED: SODIUM CHLORIDE 0.9% 1,000 ML IV STA (16:45)
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
[2018-05-22 17:27] LABS: Basophils % (A) 0 %; Eosinophils % (A) 0 %; HCT 45.5 % (39.0-53.0); Lymphocytes # (A) 0.4 k/uL (1.0-4.8); Lymphocytes % (A) 4 %; MCH 29.2 pg (25.0-35.0); MCHC 33.8 g/dL (31.0-37.0); MCV 86.3 fL (80.0-100.0); Mean Platelet Volume 7.8; Monocytes # (A) 0.6 k/uL (0-1.0); Monocytes % (A) 6 %; Neutrophils # (A) 8.4 k/uL (1.3-7.7); Neutrophils % (A) 88 %; Platelet Count 178 k/uL (150-450); RBC 5.27 m/uL (4.30-5.90); RDW 15.9 % (11.5-15.5); WBC 9.5 k/uL (3.8-10.6)
[2018-05-22 17:28] LABS: HGB 15.4 gm/dL (13.0-17.5)
[2018-05-22 17:33] LABS: INR 1.3 (<1.2); Partial Thromboplastin Time 23.8 sec (22.0-30.0); Prothrombin Time 12.6 sec (9.0-12.0)
[2018-05-22 17:39] LABS: Albumin 4.8 g/dL (3.5-5.0); Calcium 10.1 mg/dL (8.4-10.2); Potassium 3.8 mmol/L (3.5-5.1)
[2018-05-22 17:55] LABS: Creatine Kinase MB 4.9 ng/mL (0.0-2.4); Troponin I 0.067 ng/mL (0.000-0.034)
--- NOTE | 2018-05-22 18:10 | XR ---
EXAMINATION: XR chest 3V DATE AND TIME: 05/22/2018 5:53 PM ORDERING PROVIDER: Dyllan Shepard CLINICAL INDICATION: cough TECHNIQUE: PA and 2 lateral COMPARISON: 04/08/2018 DESCRIPTION: The previously seen left lower lobe ill-defined added opacity posteriorly is redemonstra jimbo and is mildly more prominent on the present study. This can be further characterized nonurgently with CT chest with contrast, which is recommended. Lungs are otherwise well-expanded and clear. Pleural spaces are negative. Cardiomediastinal silhouette and bones and soft tissues are unremarkable. IMPRESSION: LEFT LOWER LOBE PULMONARY PROCESS MORE PROMINENT THAN THE PRIOR STUDY, FURTHER CHARACTERIZATION WITH CT CHEST WITH CONTRAST IS RECOMMENDED.
--- NOTE | 2018-05-22 18:13 | CT ---
EXAMINATION: CT brain wo con DATE AND TIME: 05/22/2018 6:03 PM ORDERING PROVIDER: Dyllan Shepard CLINICAL INDICATION: Pain TECHNIQUE: Standard departmental protocol. COMPARISON: 1124 and 17 DESCRIPTION: The calvarium is intact. There is no intracranial hemorrhage. There is no mass or mass e ffect. There is no definite new attenuation defect. Remainder of the intra-axial and extra-axial comp artment examination is unremarkable. The paranasal sinuses, middle ear cavities, and mastoid sinus ai r cells are clear. The orbits are intact. IMPRESSION: NO ACUTE PROCESS.
[2018-05-22] MEDS ORDERED: ASPIRIN 81 MG PO STA (18:15)
[2018-05-22] MEDS ORDERED: NITROGLYCERIN OINT 1 INCH/GM PACKET TOPICAL STA (18:18)
[2018-05-22] MEDS ORDERED: HEPARIN SOD,PORK IN 0.45% NACL 25,000 UNIT in 0.45% NACL 1 500ML.BAG IV SCH (18:30)
[2018-05-22] MEDS ORDERED: HEPARIN SODIUM,PORCINE 5,000 UNIT/ML 1 ML VIAL IV ONE (18:38)
[2018-05-22] MEDS ORDERED: SODIUM CHLORIDE 0.9% 1,000 ML IV ONE (18:38)
[2018-05-22] MEDS ORDERED: MORPHINE SULFATE 2 MG/ML SYRINGE IVP PRN (18:38)
[2018-05-22] MEDS ORDERED: cloNIDine HCL 0.1 MG TAB PO STA (19:14)
[2018-05-22] MEDS: PANTOPRAZOLE 40 MG TABLET PO SCH (21:35)
[2018-05-22] MEDS: GABAPENTIN 400 MG CAP PO SCH (21:35)
[2018-05-22] MEDS: cloNIDine HCL 0.1 MG TAB PO SCH (21:35)
[2018-05-22] MEDS: OLANZapine 5 MG TAB PO SCH (21:35)
[2018-05-22] MEDS ORDERED: NALOXONE 0.4 MG/ML 1 ML VIAL IV PRN (22:17)
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
[2018-05-22 23:28] LABS: Creatine Kinase MB 5.4 ng/mL (0.0-2.4); Troponin I 0.065 ng/mL (0.000-0.034)
[2018-05-23] MEDS: SODIUM CHLORIDE 0.9% 1,000 ML IV SCH ×4 (00:17→17:47)
[2018-05-23] MEDS: ATORVASTATIN 40 MG TAB PO SCH ×2 (00:17→21:06)
[2018-05-23] MEDS: NITROGLYCERIN OINT 1 INCH/GM PACKET TOPICAL SCH ×3 (00:44→11:06)
[2018-05-23 06:10] LABS: Basophils % (A) 0 %; Eosinophils # (A) 0.1 k/uL (0-0.7); Eosinophils % (A) 2 %; HCT 38.5 % (39.0-53.0); HGB 12.6 gm/dL (13.0-17.5); Lymphocytes # (A) 1.1 k/uL (1.0-4.8); Lymphocytes % (A) 14 %; MCH 28.6 pg (25.0-35.0); MCHC 32.8 g/dL (31.0-37.0); MCV 87.3 fL (80.0-100.0); Mean Platelet Volume 8.2; Monocytes # (A) 0.6 k/uL (0-1.0); Monocytes % (A) 8 %; Neutrophils # (A) 5.8 k/uL (1.3-7.7); Neutrophils % (A) 75 %; Platelet Count 119 k/uL (150-450); RBC 4.41 m/uL (4.30-5.90); WBC 7.8 k/uL (3.8-10.6)
[2018-05-23 06:12] LABS: Albumin 3.4 g/dL (3.5-5.0); Calcium 8.6 mg/dL (8.4-10.2); Magnesium 1.9 mg/dL (1.6-2.3); Phosphorus 3.4 mg/dL (2.5-4.5); Potassium 3.9 mmol/L (3.5-5.1); Total Bilirubin 1.4 mg/dL (0.2-1.3)
[2018-05-23 06:20] LABS: Appearance,Urine Clear (Clear); Bacteria,Urine Rare /hpf; Bilirubin,Urine 1+ (Negative); Blood,Urine Negative (Negative); Budding Yeast,Urine Few /hpf; Color,Urine Yellow; Glucose,Urine (UA) Negative (Negative); Hyaline Casts,Urine 68 /lpf (0-2); Ketones,Urine 1+ (Negative); Leukocyte Esterase,Urine Negative (Negative); Mucus,Urine Rare /hpf; Nitrite,Urine Negative (Negative); Protein,Urine 1+ (Negative); RBC,Urine 1 /hpf (0-5); Specific Gravity,Urine 1.021 (1.001-1.035); Squamous Epithelial Cell,Urine <1 /hpf (0-4); WBC,Urine 2 /hpf (0-5)
[2018-05-23 06:35] LABS: Creatine Kinase MB 6.9 ng/mL (0.0-2.4)
[2018-05-23 06:36] LABS: Troponin I 0.056 ng/mL (0.000-0.034)
[2018-05-23] MEDS: PANTOPRAZOLE 40 MG TABLET PO SCH ×2 (06:41→16:00)
[2018-05-23] MEDS ORDERED: PANTOPRAZOLE 40 MG TABLET PO SCH (07:30)
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
[2018-05-23] MEDS: GABAPENTIN 400 MG CAP PO SCH ×4 (08:10→21:07)
[2018-05-23] MEDS: cloNIDine HCL 0.1 MG TAB PO SCH ×3 (08:11→21:06)
[2018-05-23] MEDS: TAMSULOSIN 0.4 MG CAP.ER.24H PO SCH (08:11)
[2018-05-23] MEDS: hydrALAZINE HCL 25 MG TAB PO SCH (08:11)
[2018-05-23] MEDS ORDERED: ASPIRIN 325 MG TAB PO SCH (09:00)
[2018-05-23] MEDS ORDERED: LISINOPRIL 20 MG TAB PO SCH (09:00)
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
[2018-05-23 11:40] VITALS: BMI 29.3
--- NOTE | 2018-05-23 11:57 | ECHOF ---
Referral Reason:elevated troponin MEASUREMENTS -------- HEIGHT: 182.9 cm WEIGHT: 103.4 kg BP: 120/66 IVSd: 1.6 cm (0.6 - 1.1) LVIDd: 4.7 cm (3.9 - 5.3) LVPWd: 1.3 cm (0.6 - 1.1) IVSs: 2.0 cm LVIDs: 2.7 cm LVPWs: 2.0 cm LA Diam: 3.7 cm (2.7 - 3.8) LAESV Index (A-L): 35.77 ml/m Ao Diam: 4.3 cm (2.0 - 3.7) AV Cusp: 2.1 cm (1.5 - 2.6) LA Diam: 3.6 cm (2.7 - 3.8) MV EXCURSION: 18.959 mm (> 18.000) MV EF SLOPE: 58 mm/s (70 - 150) EPSS: 0.2 cm MV E River: 0.60 m/s MV DecT: 245 ms MV A [place]: 0.74 m/s MV E/A Ratio: 0.81 RAP: 5.00 mmHg RVSP: 26.73 mmHg FINDINGS -------- Sinus rhythm. This was a technically adequate study. The left ventricular size is normal. There is moderate concentric left ventricular hypertrophy. O verall left ventricular systolic function is normal with, an EF between 55 - 60 %. The right ventricle is normal in size. The left atrial size is normal. LA is midly dilated 29-33ml/m2. The right atrial size is normal. There is mild aortic valve sclerosis. There is no evidence of aortic regurgitation. Mild mitral annular calcification present. Mild mitral regurgitation is present. [id number] tricuspid regurgitation present. There is no evidence of pulmonary hypertension. The right ventricular systolic pressure, as measured by Doppler, is 26.73mmHg. There is no pulmonic regurgitation present. The aortic root size is normal. There is no pericardial effusion. CONCLUSIONS -------- 1. The left ventricular size is normal. 2. There is moderate concentric left ventricular hypertrophy. 3. Overall left ventricular systolic function is normal with, an EF between 55 - 60 %. 4. The right ventricle is normal in size. 5. The left atrial size is normal. 6. LA is midly dilated 29-33ml/m2. 7. The right atrial size is normal. 8. There is mild aortic valve sclerosis. 9. Mild mitral annular calcification present. 10. Mild mitral regurgitation is present. 11. [id number] tricuspid regurgitation present. 12. There is no evidence of pulmonary hypertension. 13. The right ventricular systolic pressure, as measured by Doppler, is 26.73mmHg. 14. There is no pulmonic regurgitation present. 15. The aortic root size is normal. 16. There is no pericardial effusion. GOLF BALL WINDER: Yanci Chavez RDCS
[2018-05-23] MEDS: METOPROLOL TARTRATE 12.5 MG TAB PO SCH (12:00)
[2018-05-23] MEDS ORDERED: ALPRAZolam 1 MG TAB PO PRN (13:03)
--- NOTE | 2018-05-23 13:10 | P.PN ---
Subjective Progress Note Date: 05/23/18 Principal diagnosis: chest pain Patient is a 57-year-old male with a past medical history of hypertension, hep. C never been treated, drug use, and chronic left lower extremity wound who presented to the ER with multiple complaints including chest pain, shortness of breath, dizziness, decreased appetite, and vomiting. In the ER he underwent an extensive evaluation. His initial vital signs showed slight hypertension with blood pressure of 152/94. Initial laboratory analysis showed acute kidney injury with marginally elevated troponins. He was started on a heparin drip and admitted to the selective care unit for further monitoring. His troponins were trended and remained flat. He was seen by cardiology the next morning. Echocardiogram showed an ejection fraction 50-55% with mild LVH. Acute kidney injury had improved with fluid resuscitation. He was feeling better. Patient seen and examined at bedside. He states his anxiety levels have been exceedingly high and he feels like they're stemming a lot of his problems. His speech is very pressured and he is difficult to understand. He states that he has been having chest pain, dizziness, shortness of breath, decreased appetite, and intermittent vomiting. He tells me he's been taking his medications. He is also been following with his psychiatrist. His depression is well controlled but his anxiety is not well controlled and he leaves he needs to see a psychiatrist before being discharged. He has a hard time staying on topic and is mumbling and speaking quickly. He denies any thoughts or intentions of self-harm. He is feeling much better than at admission. Objective - Vital Signs Vital signs: Vital Signs Temp 97.0 F L 05/23/18 11:07 Pulse 62 05/23/18 11:07 Resp 18 05/23/18 11:07 BP 126/70 05/23/18 11:07 Pulse Ox 98 05/23/18 11:07 Intake & Output 05/22/18 05/23/18 05/23/18 18:59 06:59 18:59 Intake Total 981.333 Output Total 700 Balance 281.333 Weight 103.328 kg 103.8 kg 103.8 kg Intake: Intake, IV Titration 981.333 Amount Heparin Sod,Pork in 0.45% 141.333 NaCl 25,000 unit In 0.45 % NaCl 1 500ml.bag @ 9.68 UNITS/KG/HR 20 mls/hr IV .Q24H [facility] Rx#:[id number] Sodium Chloride 0.9% 1, 840 000 ml @ 140 mls/hr IV . Q7H9M [facility] Rx#:[id number] Output: Urine 700 Other: Voiding Method Urinal Toilet Urinal - Exam General: non toxic, mild distress secondary to anxiety, appears older than stated age Derm: Left lower extremity wounds with a sharp and placed some of which has been removed and chronic venous stasis changes consistent of a purple/brown color and edema. warm, dry Head: atraumatic, normocephalic, symmetric Eyes: EOMI, no lid lag, anicteric sclera Mouth: no lip lesion, mucus membranes moist Cardiovascular: S1S2 reg, no murmur, positive posterior tibial pulse bilateral, Lungs: CTA bilateral, no rhonchi, no rales , no accessory muscle use Abdominal: soft, nontender to palpation, no guarding, no appreciable organomegaly Ext: no gross muscle atrophy, no edema, no contractures Neuro: CN II-XI grossly intact, no focal neuro deficits Psych: Alert, oriented, appears anxious with Pressured speech. - Labs CBC & Chem 7: 05/23/18 05:33 05/23/18 05:33 Labs: Abnormal Lab Results - Last 24 Hours (Table) 05/22/18 05/22/18 05/22/18 Range/Units 16:45 16:45 16:45 Hgb (13.0-17.5) gm/dL Hct (39.0-53.0) % RDW 15.9 H (11.5-15.5) % Plt Count (150-450) k/uL Neutrophils # 8.4 H (1.3-7.7) k/uL Lymphocytes # 0.4 L (1.0-4.8) k/uL PT (9.0-12.0) sec INR (<1.2) APTT (22.0-30.0) sec Sodium 146 H (137-145) mmol/L Chloride 113 H (98-107) mmol/L Carbon Dioxide 18 L (22-30) mmol/L BUN 38 H (9-20) mg/dL Creatinine 2.10 H (0.66-1.25) mg/dL Glucose 115 H (74-99) mg/dL Total Bilirubin 2.0 H (0.2-1.3) mg/dL Total Creatine Kinase 812 H (55-170) U/L CK-MB (CK-2) 4.9 H* (0.0-2.4) ng/mL Troponin I 0.067 H* (0.000-0.034) ng/mL Total Protein (6.3-8.2) g/dL Albumin (3.5-5.0) g/dL HDL Cholesterol (40-60) mg/dL Urine Protein (Negative) Urine Ketones (Negative) Urine Bilirubin (Negative) Urine Bacteria (None) /hpf Hyaline Casts (0-2) /lpf Urine Mucus (None) /hpf Urine Yeast (Budding) (None) /hpf 05/22/18 05/22/18 05/23/18 Range/Units 16:45 22:34 01:23 Hgb (13.0-17.5) gm/dL Hct (39.0-53.0) % RDW (11.5-15.5) % Plt Count (150-450) k/uL Neutrophils # (1.3-7.7) k/uL Lymphocytes # (1.0-4.8) k/uL PT 12.6 H (9.0-12.0) sec INR 1.3 H (<1.2) APTT 66.7 H (22.0-30.0) sec Sodium (137-145) mmol/L Chloride (98-107) mmol/L Carbon Dioxide (22-30) mmol/L BUN (9-20) mg/dL Creatinine (0.66-1.25) mg/dL Glucose (74-99) mg/dL Total Bilirubin (0.2-1.3) mg/dL Total Creatine Kinase 727 H (55-170) U/L CK-MB (CK-2) 5.4 H* (0.0-2.4) ng/mL Troponin I 0.065 H* (0.000-0.034) ng/mL Total Protein (6.3-8.2) g/dL Albumin (3.5-5.0) g/dL HDL Cholesterol (40-60) mg/dL Urine Protein (Negative) Urine Ketones (Negative) Urine Bilirubin (Negative) Urine Bacteria (None) /hpf Hyaline Casts (0-2) /lpf Urine Mucus (None) /hpf Urine Yeast (Budding) (None) /hpf 05/23/18 05/23/18 05/23/18 Range/Units 05:33 05:33 05:33 Hgb 12.6 L (13.0-17.5) gm/dL Hct 38.5 L (39.0-53.0) % RDW 16.0 H (11.5-15.5) % Plt Count 119 L (150-450) k/uL Neutrophils # (1.3-7.7) k/uL Lymphocytes # (1.0-4.8) k/uL PT (9.0-12.0) sec INR (<1.2) APTT (22.0-30.0) sec Sodium (137-145) mmol/L Chloride 114 H (98-107) mmol/L Carbon Dioxide (22-30) mmol/L BUN 34 H (9-20) mg/dL Creatinine 1.60 H (0.66-1.25) mg/dL Glucose (74-99) mg/dL Total Bilirubin 1.4 H (0.2-1.3) mg/dL Total Creatine Kinase 862 H (55-170) U/L CK-MB (CK-2) 6.9 H* (0.0-2.4) ng/mL Troponin I 0.056 H* (0.000-0.034) ng/mL Total Protein 6.0 L (6.3-8.2) g/dL Albumin 3.4 L (3.5-5.0) g/dL HDL Cholesterol 28 L (40-60) mg/dL Urine Protein (Negative) Urine Ketones (Negative) Urine Bilirubin (Negative) Urine Bacteria (None) /hpf Hyaline Casts (0-2) /lpf Urine Mucus (None) /hpf Urine Yeast (Budding) (None) /hpf 05/23/18 Range/Units 05:58 Hgb (13.0-17.5) gm/dL Hct (39.0-53.0) % RDW (11.5-15.5) % Plt Count (150-450) k/uL Neutrophils # (1.3-7.7) k/uL Lymphocytes # (1.0-4.8) k/uL PT (9.0-12.0) sec INR (<1.2) APTT (22.0-30.0) sec Sodium (137-145) mmol/L Chloride (98-107) mmol/L Carbon Dioxide (22-30) mmol/L BUN (9-20) mg/dL Creatinine (0.66-1.25) mg/dL Glucose (74-99) mg/dL Total Bilirubin (0.2-1.3) mg/dL Total Creatine Kinase (55-170) U/L CK-MB (CK-2) (0.0-2.4) ng/mL Troponin I (0.000-0.034) ng/mL Total Protein (6.3-8.2) g/dL Albumin (3.5-5.0) g/dL HDL Cholesterol (40-60) mg/dL Urine Protein 1+ H (Negative) Urine Ketones 1+ H (Negative) Urine Bilirubin 1+ H (Negative) Urine Bacteria Rare H (None) /hpf Hyaline Casts 68 H (0-2) /lpf Urine Mucus Rare H (None) /hpf Urine Yeast (Budding) Few H (None) /hpf Assessment and Plan Assessment: Chest pain and dizziness with elevated troponin -Heparin drip discontinued per cardiology -Echocardiogram within normal limits -Cardiology recommendations appreciated and plan will be for stress test or coronary angiography in the future. -Continue with aspirin and statin -Lipid profile within normal limits Acute kidney injury likely secondary to decreased oral intake and DANNI inhibitor use -Hold lisinopril -IV fluids -Repeat kidney profile in a.m. -Avoid additional nephrotoxic agents Anxiety with possible manic episode -Resume Zyprexa -Plan will be for consult from psychiatry and medically stable Peptic ulcer disease -Patient is on aspirin -He states he is taking Protonix and Zantac as an outpatient and we will add Pepcid Hypertension, controlled -Continue with hydralazine -Continue with home with Catapres -Metoprolol added by cardiology -Lisinopril on hold with MAYTE Chronic left lower extremity wound -Vascular surgery recommendations appreciated -Follow up as outpatient BPH -Continue with Flomax DVT prophylaxis: Lovenox Discussed with: Patient, nursing Anticipated discharge: 05/25/[address]: undetermined A total of 40 minutes was spent on the care of this complex patient more than 50 % of the time was spent in counseling and care coordination.
[2018-05-23 17:23] LABS: Amphetamine Screen,Urine Not Detected (NotDetected); Barbiturate Screen,Urine Not Detected (NotDetected); Benzodiazepines Screen,Urine Not Detected (NotDetected); Cocaine Screen,Urine Not Detected (NotDetected); Methadone Screen, Urine Not Detected (NotDetected); Opiate Screen,Urine Not Detected (NotDetected); Oxycodone Screen, Urine Not Detected (NotDetected); Phencyclidine Screen,Urine Not Detected (NotDetected); Tricyclic Antidepressant,Urine Detected (NotDetected); Urn Cannabinoid Scrn Not Detected (NotDetected)
[2018-05-23] MEDS: COLLAGENASE 250 UNIT/GM OINTMENT 30 GM TUBE TOPICAL SCH (17:34)
[2018-05-23] MEDS: OLANZapine 5 MG TAB PO SCH (21:06)
[2018-05-24] MEDS: HYDROcodone/APAP 5-325MG 1 EACH TAB PO PRN ×2 (04:07→11:49)
[2018-05-24] MEDS: SODIUM CHLORIDE 0.9% 1,000 ML IV SCH ×2 (04:07→11:51)
[2018-05-24 06:30] LABS: Anisocytosis Slight; HCT 35.5 % (39.0-53.0); HGB 11.6 gm/dL (13.0-17.5); Hypochromasia Slight; MCH 29.1 pg (25.0-35.0); MCHC 32.8 g/dL (31.0-37.0); MCV 88.6 fL (80.0-100.0); Mean Platelet Volume 8.6; RDW 16.1 % (11.5-15.5); WBC 6.1 k/uL (3.8-10.6)
[2018-05-24] MEDS: PANTOPRAZOLE 40 MG TABLET PO SCH (06:35)
[2018-05-24 06:45] LABS: Platelet Count 95 k/uL (150-450)
[2018-05-24 06:56] LABS: Anion Gap 7 mmol/L; Blood Urea Nitrogen 22 mg/dL (9-20); Calcium 8.7 mg/dL (8.4-10.2); Carbon Dioxide 17 mmol/L (22-30); Chloride 116 mmol/L (98-107); Glucose 87 mg/dL (74-99); Potassium 3.9 mmol/L (3.5-5.1); Sodium 140 mmol/L (137-145)
[2018-05-24] MEDS ORDERED: RX INFO: IV CONTRAST WAS GIVEN 1 EACH MISC MISCELLANE PRN (08:50)
[2018-05-24] MEDS ORDERED: ENOXAPARIN 40 MG/0.4 ML SYRINGE SQ SCH (09:00)
[2018-05-24] MEDS ORDERED: ASPIRIN 81 MG PO SCH (09:00)
[2018-05-24] MEDS: GABAPENTIN 400 MG CAP PO SCH ×2 (09:19→14:05)
[2018-05-24] MEDS: cloNIDine HCL 0.1 MG TAB PO SCH (09:19)
[2018-05-24] MEDS: METOPROLOL TARTRATE 12.5 MG TAB PO SCH (09:20)
[2018-05-24] MEDS: TAMSULOSIN 0.4 MG CAP.ER.24H PO SCH (09:20)
[2018-05-24] MEDS: hydrALAZINE HCL 25 MG TAB PO SCH (09:20)
[2018-05-24] MEDS: COLLAGENASE 250 UNIT/GM OINTMENT 30 GM TUBE TOPICAL SCH (09:22)
--- NOTE | 2018-05-24 09:42 | P.PN ---
Progress Note - Text Progress Note Date: 05/24/18 Chest pain, dizziness, and shortness of breath resolved. Will check CT chest due to LLL abnormality. Likely home today if CT chest without concerns and cleared for discharge by cardio. Formal note or discharge summary to follow.
[2018-05-24 09:57] VITALS: PULSE 58; RESP 20
--- NOTE | 2018-05-24 10:46 | CT ---
EXAMINATION TYPE: CT chest w con DATE OF EXAM: 05/24/2018 COMPARISON: None. HISTORY: LL abnormality CT DLP: 583.20 mGycm Automated exposure control for dose reduction was used. CONTRAST: CT scan of the chest is performed with IV Contrast, patient injected with 100 ml mL of Isovue 300. FINDINGS: There is some dependent atelectasis in the dependent portions of both lungs. No parenchymal consolidation is identified. There is some subtle emphysematous change present. There is no significant axillary or hilar adenopathy. There is some shotty mediastinal adenopathy. Th ere is no pleural or pericardial fluid. The heart is not enlarged. There is a 2 cm right adrenal mass. There is colonic interposition on the left. Visualized portions o f the upper abdomen are otherwise unremarkable. There is degenerative disc disease and hypertrophic spondylosis within the spine. IMPRESSION: 1. NO DISCRETE INTRATHORACIC ABNORMALITY. 2. SHOTTY MEDIASTINAL ADENOPATHY OF QUESTIONABLE SIGNIFICANCE. 3. 2 CM, RIGHT ADRENAL MASS. 4. DEGENERATIVE CHANGES WITHIN THE SPINE.
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
[2018-05-24 11:52] VITALS: BP 127/81; TEMP 97.3
--- NOTE | 2018-05-24 13:29 | P.DS ---
Providers Date of admission: 05/22/18 18:35 Expected date of discharge: 05/24/18 Attending physician: Feliciano Hansen MD Consults: 05/22/18 18:38 Consult Physician Stat Consulting Provider: [facility] Consult Reason/Comments: NSTEMI Do you want consulting provider notified?: Yes 05/22/18 22:14 Consult Physician Routine Consulting Provider: Guredep Rivera Consult Reason/Comments: left leg wound , poor peripheral circulation Do you want consulting provider notified?: Yes Primary care physician: Luis Manuel Medina DO Hospital Course: Discharge diagnosis: Chest pain, acute coronary event ruled out Elevated troponin Dizziness, due to dehydration Acute kidney injury, due to dehydration Anxiety Peptic ulcer disease Hypertension Chronic left lower extremity wound BPH Hepatitis C Anxiety Hospital course: Patient is a 57-year-old male with a past medical history of hypertension, hep. C never been treated, drug use, and chronic left lower extremity wound who presented to the ER with multiple complaints including chest pain, shortness of breath, dizziness, decreased appetite, and vomiting. In the ER he underwent an extensive evaluation. His initial vital signs showed slight hypertension with blood pressure of 152/94. Initial laboratory analysis showed acute kidney injury with marginally elevated troponins. He was started on a heparin drip and admitted to the selective care unit for further monitoring. His troponins were trended and remained flat. He was seen by cardiology the next morning. Echocardiogram showed an ejection fraction 50-55% with mild LVH. Acute kidney injury had improved with fluid resuscitation. He was feeling better. He was seen by cardiology and it was recommended that he have an outpatient stress test. His renal function stabilized. He was started on metoprolol for elevated BP in addition to his current regiment. He underwent a CT of the chest to better evaluate LLB abnormality of x-ray, CT chest demonstrated no acute process. He was seen by vascular surgery and no immediate surgical intervention was recommended for his chronic wound. He will follow with . He was determined stable for discharge home. He was up and ambulating in the hallways. He will need to follow up with Dr. Quinones in 1-2 weeks as an outpatient and with Dr. Rivera in 1 week for further vascular evaluation. He was also given Dr. Sulma calvo to establish a PCP. He was out of his medications and they were refilled including zyprexa. He was given a 2 week supply. His [place], Xanax and gabapentin WERE NOT refilled. Patient is working with [facility] to find a permanent dwelling. Patient seen and examined at bedside. No additional chest pain, shortness breath, or dizziness. The hallways. Feeling well and like he is back to baseline. Vital signs reviewed and stable. General: non toxic, no distress, appears at stated age Derm: warm, dry, chronic left lower extremity wound with signs of healing and some sharp, no warmth, erythema, or drainage Head: atraumatic, normocephalic, symmetric Eyes: EOMI, no lid lag, anicteric sclera Mouth: no lip lesion, mucus membranes moist Cardiovascular: S1S2 reg, no murmur, positive posterior tibial pulse bilateral, Lungs: CTA bilateral, no rhonchi, no rales , no accessory muscle use Abdominal: soft, nontender to palpation, no guarding, no appreciable organomegaly Ext: no gross muscle atrophy, no edema, no contractures Neuro: CN II-XI grossly intact, no focal neuro deficits Psych: Alert, oriented, appropriate affect A total of 25 minutes of time were spent preparing this complex discharge summary . Pertinent Studies: Echo- EF 55-60%, LE dilated CT chest demonstrated no acute process Patient Condition at Discharge: Stable Plan - Discharge Summary Discharge Rx Participant: Yes New Discharge Prescriptions: New RX: Aspirin 81 mg PO DAILY chew RX: Metoprolol Tartrate [Lopressor] 12.5 mg PO DAILY #30 tab Continue RX: ALPRAZolam [Xanax] 1 mg PO QID PRN PRN Reason: Anxiety RX: Tamsulosin HCl [Flomax] 0.4 mg PO DAILY RX: Gabapentin 800 mg PO QID RX: Hydrocodone/Acetaminophen [[place] 10-325] 1 tab PO QID PRN PRN Reason: Pain RX: Pantoprazole [Protonix] 40 mg PO DAILY RX: cloNIDine HCL [Catapres] 0.1 mg PO TID #90 tab RX: Lisinopril [Zestril] 20 mg PO DAILY #30 tab RX: OLANZapine [ZyPREXA] 15 mg PO HS #14 tablet Discontinued RX: hydrALAZINE HCL [Apresoline] 75 mg PO DAILY Discharge Medication List RX: ALPRAZolam [Xanax] 1 mg PO QID PRN 02/17/18 [History] RX: Gabapentin 800 mg PO QID 02/17/18 [History] RX: Hydrocodone/Acetaminophen [[place] 10-325] 1 tab PO QID PRN 02/17/18 [History] RX: Tamsulosin HCl [Flomax] 0.4 mg PO DAILY 02/17/18 [History] RX: Pantoprazole [Protonix] 40 mg PO DAILY 05/22/18 [History] RX: Aspirin 81 mg PO DAILY chew 05/24/18 [Rx] RX: Lisinopril [Zestril] 20 mg PO DAILY #30 tab 05/24/18 [Rx] RX: Metoprolol Tartrate [Lopressor] 12.5 mg PO DAILY #30 tab 05/24/18 [Rx] RX: OLANZapine [ZyPREXA] 15 mg PO HS #14 tablet 05/24/18 [Rx] RX: cloNIDine HCL [Catapres] 0.1 mg PO TID #90 tab 05/24/18 [Rx] Follow up Appointment(s)/Referral(s): Wisam Quinones MD [STAFF PHYSICIAN] - 1 Week (offices are closed please call to make an appointment) Yuri Ozuna MD [STAFF PHYSICIAN] - 1-2 Days (offices are close please call to make an appointment) [facility], [NON-STAFF] - 1 Week (offices are close please call to make an appointment) Gurdeep Rivera MD [STAFF PHYSICIAN] - 1 Week (offices are close please call to make an appointment) Patient Instructions/Handouts: Acute Kidney Injury (DC) Activity/Diet/Wound Care/Special Instructions: heart healthy diet Activity as tolerated Discharge Disposition: HOME SELF-CARE
== END 2018-05-24 14:24 | disposition home health service (06) | DRG 313 ==
LOC: EC 16:03 → 6SEL 18:35
PROVIDERS: ADMIT Internal Medicine; ATTEND Internal Medicine
DX: R07.9 Chest pain, unspecified (principal); N17.9 Acute kidney failure, unspecified; E87.2 Acidosis; L97.929 Non-pressure chronic ulcer of unspecified part of left lower leg with unspecified severity; B19.20 Unspecified viral hepatitis C without hepatic coma; E86.0 Dehydration; F17.210 Nicotine dependence, cigarettes, uncomplicated; F32.9 Major depressive disorder, single episode, unspecified; F41.0 Panic disorder [episodic paroxysmal anxiety]; I10 Essential (primary) hypertension; I44.0 Atrioventricular block, first degree; I73.9 Peripheral vascular disease, unspecified; K27.9 Peptic ulcer, site unspecified, unspecified as acute or chronic, without hemorrhage or perforation; N40.0 Benign prostatic hyperplasia without lower urinary tract symptoms; R29.6 Repeated falls; R63.4 Abnormal weight loss; R25.1 Tremor, unspecified; I87.309 Chronic venous hypertension (idiopathic) without complications of unspecified lower extremity; R77.9 Abnormality of plasma protein, unspecified; I08.3 Combined rheumatic disorders of mitral, aortic and tricuspid valves; Z79.899 Other long term (current) drug therapy; Z88.2 Allergy status to sulfonamides; Z86.14 Personal history of Methicillin resistant Staphylococcus aureus infection; Z82.49 Family history of ischemic heart disease and other diseases of the circulatory system
CPT/HCPCS: 36415; 70450; 71046; 71260; 80048; 80053; 80061; 80306; 81001; 82105; 82550; 82553; 83735; 84100; 84484; 85025; 85027; 85610; 85730; 93005; 93306; 94760; 96361; 96365; 96366; 96376; 99285

== ENCOUNTER → 2018-08-28 | Outpatient (CLI) | payer OTHER ==
[2018-08-28 14:58] LABS: Basophils # (A) 0.1 k/uL (0-0.2); Basophils % (A) 1 %; Eosinophils # (A) 0.3 k/uL (0-0.7); Eosinophils % (A) 5 %; HCT 48.7 % (39.0-53.0); HGB 15.9 gm/dL (13.0-17.5); Lymphocytes # (A) 1.6 k/uL (1.0-4.8); Lymphocytes % (A) 27 %; MCH 28.8 pg (25.0-35.0); MCHC 32.6 g/dL (31.0-37.0); MCV 88.3 fL (80.0-100.0); Mean Platelet Volume 8.8; Monocytes # (A) 0.5 k/uL (0-1.0); Monocytes % (A) 8 %; Neutrophils # (A) 3.4 k/uL (1.3-7.7); Neutrophils % (A) 57 %; Platelet Count 142 k/uL (150-450); RBC 5.51 m/uL (4.30-5.90); RDW 15.8 % (11.5-15.5)
[2018-08-28 15:26] LABS: T4, Free (Free Thyroxine) 1.01 ng/dL (0.78-2.19)
[2018-08-28 15:40] LABS: Prostate Specific Antigen 0.53 ng/mL (0.00-4.00)
[2018-08-28 20:12] LABS: HIV 1 AB Non-Reactive (Non-Reactive); HIV AB P24 Non-Reactive (Non-Reactive); HIV P24 AG Non-Reactive (Non-Reactive)
== END | disposition home or self-care (01) ==
LOC: LABWHC1 13:45
DX: K73.9 Chronic hepatitis, unspecified (principal)
CPT/HCPCS: 36415; 82465; 82947; 83655; 84153; 84439; 84443; 84481; 85025; 87390